=== PATIENT | male | born 1960 | race Caucasian/White ===

== ENCOUNTER 2016-07-15 14:39 | Inpatient (IN) | payer OTHER ==
[2016-07-15] MEDS ORDERED: SODIUM CHLORIDE 0.9% 10 ML FLUSH FLUSH PRN (14:51)
[2016-07-15] MEDS ORDERED: ALBUTEROL 0.083% 3 ML NEB NEB ONE (14:55)
[2016-07-15] MEDS ORDERED: METHYLPREDNISOLONE 125 MG/2 ML VIAL IV ONE (14:55)
[2016-07-15] MEDS ORDERED: Albuterol/Ipratropium Neb 3 ML NEB NEB ONE (14:55)
--- NOTE | 2016-07-15 14:58 | EDPRACDOC ---
- General Information Mode Of Arrival: Car - History of Present Illness Onset: 2-3 days HPI: Pt c/o sob, productive cough x 2-3 days. Denies fever, earache, sore throat, cp , abd pain, n/v, changes in bowel or bladder, leg swelling, rash. Pt states completed Levaquin and steroids couple days ago. Pt states seen in [place] for same thing 10 days ago. Shortness of Breath: Moderate Relevant History: Reports: COPD Cough: Reports: Productive Rhinorrhea: Reports: None Ear Symptoms: Reports: None SOB Worsens with: Reports: Exertion, Movement SOB Improves with: Reports: Nothing Associated Signs and symptoms: Reports: Cough <Darcie Valverde - Last Filed: 07/15/16 15:55> <Angélica Zaragoza - Last Filed: 07/15/16 16:03> - General Information Chief Complaint: Dyspnea/Resp distress Stated Complaint: DIFF.BREATHING HX COPD Time Seen by Provider: 07/15/16 14:51 Home Medications: Home Medications Lisinopril [Prinivil] 30 mg PO DAILY 03/28/15 Tiotropium [place] [Spiriva Respimat] 2 puff INH DAILY 03/28/15 Albuterol Sulfate [Proventil Hfa] 1 puff INH Q6H PRN 07/15/16 Fluticasone/Vilanterol [Breo Ellipta 200-25 Mcg INH] 1 puff INH DAILY 07/15/16 Omeprazole 40 mg PO DAILY 07/15/16 Allergies/Adverse Reactions: Allergies Allergy/AdvReac Type Severity Reaction Status Date / Time Penicillins Allergy Unknown Verified 07/15/16 14:42 ED Past Medical History - History Reviewed Yes Nurses notes reviewed and agree except as marked - Patient Medical History Cardiac History: Reports: Hypertension Respiratory History: Reports: Asthma, COPD, Emphysema GI/ History: Reports: Gastroesophageal Reflux Systemic History: Denies: Cancer - Family Medical History Denies: Hypertension, Diabetes, Cancer, Stroke, Cardiac Disorders - Social Medical History Smoking Status: Heavy tobacco smoker (5 or more cigarettes/day or daily pipe/ cigar) ETOH: None Substance Abuse: None <Darcie Valverde - Last Filed: 07/15/16 15:55> EDM Review of Systems - Review of Systems Constitutional: No Symptoms Reported. negative: Fever, Chills, Weakness, Fatigue, Loss of Appetite Ears: No Symptoms Reported. negative: Pain, Hearing Loss, Drainage, Ear Pulling Throat: No Symptoms Reported. negative: Pain, Swelling Nose: No Symptoms Reported. negative: Congestion, Bleeding, Discharge, Injection, Swelling, Deformity, Ecchymosis, Tender, Abrasion, Laceration Mouth: No Symptoms Reported. negative: Pain, Drooling Respiratory: Cough, Shortness of Breath Cardiovascular: No Symptoms Reported. negative: Chest Pain, Palpitations, Syncope, Edema, Orthopnea, PND, Skin Mottling, Cyanosis Gastrointestinal: No Symptoms Reported. negative: Pain, Constipation, Nausea, Vomiting, Diarrhea, Melena, Formula Intolerance Genitourinary: No Symptoms Reported. negative: Dysuria, Hematuria, Frequency, Discharge, Bleeding, Testicular Pain, Neurological: No Symptoms Reported. negative: Headache, Dizziness, Seizure, Numbness, Weakness, Speech Difficulty, Gait Difficulty Musculoskeletal: No Symptoms Reported. negative: Neck, Chestwall, Ribs, Back, Shoulder, Arm, Elbow, Forearm, Wrist, Hand, Pelvis, Hip, Femur, Knee, Leg, Ankle , Foot Integumentary: No Symptoms Reported. negative: Itching, Rash, Bruising, Wound Allergic/Immunologic: No Symptoms Reported. negative: Hives, Itching Hematologic: No Symptoms Reported. negative: Lymphadenopathy, Easy Bruising, Easy Bleeding Psychiatric: No Symptoms Reported. negative: Anxiety, Depression, Hallucinations, Insomnia, Suicidal <Darcie Valverde April - Last Filed: 07/15/16 15:55> - Physical Exam Constitutional: Alert, Distress (moderate) Oriented to: Time, Person, Place Last recorded Vital Signs: Last Vital Signs Temp 98.8 F 07/15/16 14:42 Pulse 127 H 07/15/16 14:42 Resp 22 07/15/16 14:42 BP 173/92 07/15/16 14:42 Pulse Ox 88 L 07/15/16 14:42 Oxygen Pulse Oxygen Saturation 88 O2 Device Room Air Oxygen Flow Rate Fraction of Inspired Oxygen ( FIO2) - HEENT Head: Normal ( normocephalic) Eye Exam: Normal (PERRL, EOMI, Sclera white) Oropharynx: Normal (Pharynx:Moist without exudate,Gums-no swelling) Tympanic Membrane: Normal ENT EAC: Normal Nose: No Symptoms Reported (septum midline) Neck: Normal (FROM, trachea at midline) - Respiratory/Cardiovascular Respiratory: Diminished, Wheezes Cardiovascular: Tachycardia - GI Auscultation: Normal (NABS) Palpation: Normal (Soft,No rebound or guarding, non distended) Tenderness: Non tender - Musculoskeletal Back: Normal (Non-Tender) Extremities: Normal (Normal tone, Pulses 2+ No cyanosis or edema, FROM) - Integumentary Skin: Normal, Warm, Dry Lymphatics: Normal (no adenopathy) - Neurologic Memory Impaired: Normal Motor Function: Normal (Normal tone, Pulses 2+ No cyanosis or edema, FROM) Mood Description: Normal Perception: Normal <Darcie Valverde - Last Filed: 07/15/16 15:55> - Physical Exam Last recorded Vital Signs: Last Vital Signs Temp 98.8 F 07/15/16 14:42 Pulse 127 H 07/15/16 14:42 Resp 22 07/15/16 14:42 BP 173/92 07/15/16 14:42 Pulse Ox 88 L 07/15/16 14:42 Oxygen Pulse Oxygen Saturation 88 O2 Device Room Air Oxygen Flow Rate Fraction of Inspired Oxygen ( FIO2) <Angélica Zaragoza - Last Filed: 07/15/16 16:03> ED SOB MDM - Differential Diagnosis Differential Diagnosis: Heart Failure, Pulmonary Embolus, Pnuemonia, Respiratory Insufficiency, URI - Results Result Diagrams: 07/15/16 15:15 07/15/16 15:15 - EKG EKG #1 EKG Time: 15:03 Rate: bpm: 123 [place]: Normal Rhythm: ST Block: None ST: Nonsp - Diagnostic Imaging Chest Image interpreted by: Radiologist Diagnostic Imaging Comments: IMPRESSION: Evidence of a degree of chronic bronchitis. No edema or consolidation. Healed rib fractures on the right. <Darcie Valverde - Last Filed: 07/15/16 15:55> - Re-evaluation Re-evaluation 1 Re-evaluation Time: 16:01 (improved, but still ) - Results Result Diagrams: 07/15/16 15:15 07/15/16 15:15 Results: WBC 8.1 xk/uL (3.8-10.8) 07/15/16 15:15 RBC 5.03 xM/uL (4.70-6.10) 07/15/16 15:15 Hgb 16.2 g/dL (14.0-18.0) 07/15/16 15:15 Hct 47.9 % (42-52) 07/15/16 15:15 MCV 95 fL (80-94) H 07/15/16 15:15 MCH 32.3 pg (27-32) H 07/15/16 15:15 MCHC 33.9 g/dl (33-36) 07/15/16 15:15 RDW 13.0 % (11.5-14.5) 07/15/16 15:15 Plt Count 212 xk/uL (130-400) 07/15/16 15:15 MPV 8.2 fL (7.4-10.4) 07/15/16 15:15 Neut % (Auto) 60.4 % (45-76) 07/15/16 15:15 Lymph % (Auto) 12.2 % (17-44) L 07/15/16 15:15 [place] % (Auto) 16.1 % (3-10) H 07/15/16 15:15 Eos % (Auto) 10.4 % (0-5) H 07/15/16 15:15 Baso % (Auto) 0.9 % (0-2) 07/15/16 15:15 Absolute Neuts (auto) 4.86 xk/uL (1.7-8.2) 07/15/16 15:15 Absolute Lymphs (auto) 0.97 xk/uL (0.65-4.75) 07/15/16 15:15 PT 10.2 SEC (9.2-11.2) 07/15/16 15:15 INR 1.0 07/15/16 15:15 APTT 25.9 SEC (22-35) 07/15/16 15:15 Puncture Site Right radial 07/15/16 15:05 pH 7.390 pH UNITS (7.35-7.45) 07/15/16 15:05 pCO2 49.0 mmHg (35-45) H 07/15/16 15:05 pO2 55.0 mmHg (80-100) L 07/15/16 15:05 HCO3 29.7 MMOL/L (22-26) H 07/15/16 15:05 Total CO2 31.2 MMOL/L (23-27) H 07/15/16 15:05 Base Excess 3.7 (+/- 2) H 07/15/16 15:05 FiO2 % 21% 07/15/16 15:05 Specimen Drawn By Piksa 07/15/16 15:05 Sodium 138 mEq/L (137-146) 07/15/16 15:15 Potassium 4.2 mEq/L (3.5-5.1) 07/15/16 15:15 Chloride 99 mEq/L (98-107) 07/15/16 15:15 Carbon Dioxide 30 mMOL/L (22-33) 07/15/16 15:15 Anion Gap 13 mEq/L (8-16) 07/15/16 15:15 BUN 9 MG/DL (9-20) 07/15/16 15:15 Creatinine 0.80 MG/DL (0.66-1.25) 07/15/16 15:15 Estimated GFR (MDRD) > 60 mL/min (>=60) 07/15/16 15:15 Glucose 142 MG/DL (70-99) H 07/15/16 15:15 Calculated Osmolality 267 MOs/Kg (270-290) L 07/15/16 15:15 Lactic Acid 1.6 mEq/L (0.7-2.1) 07/15/16 15:15 Calcium 8.8 MG/DL (8.4-10.2) 07/15/16 15:15 Total Bilirubin 0.4 MG/DL (0.2-1.3) 07/15/16 15:15 AST 22 IU/L (17-59) 07/15/16 15:15 ALT 35 IU/L (21-72) 07/15/16 15:15 Alkaline Phosphatase 73 IU/L (38-126) 07/15/16 15:15 Creatine Kinase 63 IU/L (55-170) 07/15/16 15:15 Total Protein 6.9 G/DL (6.3-8.2) 07/15/16 15:15 Albumin 4.0 G/DL (3.5-5.0) 07/15/16 15:15 Lab Results 07/15/16 07/15/16 07/15/16 15:15 15:15 15:15 WBC 8.1 RBC 5.03 Hgb 16.2 Hct 47.9 MCV 95 H MCH 32.3 H MCHC 33.9 RDW 13.0 Plt Count 212 MPV 8.2 Neut % (Auto) 60.4 Lymph % (Auto) 12.2 L [place] % (Auto) 16.1 H Eos % (Auto) 10.4 H Baso % (Auto) 0.9 Absolute Neuts (auto) 4.86 Absolute Lymphs (auto) 0.97 PT 10.2 INR 1.0 APTT 25.9 Puncture Site pH pCO2 pO2 HCO3 Total CO2 Base Excess FiO2 % Specimen Drawn By Sodium Potassium Chloride Carbon Dioxide Anion Gap BUN Creatinine Estimated GFR (MDRD) Glucose Calculated Osmolality Lactic Acid 1.6 Calcium Total Bilirubin AST ALT Alkaline Phosphatase Creatine Kinase Total Protein Albumin 07/15/16 07/15/16 15:15 15:05 WBC RBC Hgb Hct MCV MCH MCHC RDW Plt Count MPV Neut % (Auto) Lymph % (Auto) [place] % (Auto) Eos % (Auto) Baso % (Auto) Absolute Neuts (auto) Absolute Lymphs (auto) PT INR APTT Puncture Site Right radial pH 7.390 pCO2 49.0 H pO2 55.0 L HCO3 29.7 H Total CO2 31.2 H Base Excess 3.7 H FiO2 % 21% Specimen Drawn By Piksa Sodium 138 Potassium 4.2 Chloride 99 Carbon Dioxide 30 Anion Gap 13 BUN 9 Creatinine 0.80 Estimated GFR (MDRD) > 60 Glucose 142 H Calculated Osmolality 267 L Lactic Acid Calcium 8.8 Total Bilirubin 0.4 AST 22 ALT 35 Alkaline Phosphatase 73 Creatine Kinase 63 Total Protein 6.9 Albumin 4.0 <Angélica Zaragoza - Last Filed: 07/15/16 16:03> <Darcie Valverde - Last Filed: 07/15/16 15:55> - Departure Yes I personally saw and evaluated the patient. Disposition: Admit IP To This Hospital Education/Counseling Given To: Patient Education/Counseling Given Regarding: Diagnosis, Treatment Decision to Admit Time: 16:03 Decision to admit date: 07/15/16 Decision to admit: from ED - Physician Consulted Hospitalist Provider Called: Sidney Galan <Angélica Zaragoza - Last Filed: 07/15/16 16:03> - Departure Condition: Fair Final Diagnosis: Acute exacerbation of chronic obstructive airways disease, Tobacco abuse, Acute bronchitis
--- NOTE | 2016-07-15 15:10 | DIRPT ---
CLINICAL DATA: Two day history of shortness of breath EXAM: PORTABLE CHEST 1 VIEW COMPARISON: March 28, 2015 FINDINGS: Lungs remain hyperexpanded. There is central peribronchial thickening. No edema or consolidation. Heart size and pulmonary vascularity normal. No adenopathy. There are healed fractures on the right. IMPRESSION: Evidence of a degree of chronic bronchitis. No edema or consolidation. Healed rib fractures on the right. Electronically Signed By: Damaso Cloud III, M.D. On: 07/15/2016 15:07
[2016-07-15 15:12] LABS: ABG Draw Site Right Radial; ALLEN'S TEST PASS; BEb 3.7 (+/- 2); TCO2 31.2 MMOL/L (23-27)
[2016-07-15 15:35] LABS: AUTOMATED BASOPHIL 0.9 % (0-2); AUTOMATED EOSINOPHIL 10.4 % (0-5); AUTOMATED LYMPH 12.2 % (17-44); AUTOMATED MONOCYTE 16.1 % (3-10); AUTOMATED NEUTROPHIL 60.4 % (45-76); MPV 8.2 fL (7.4-10.4)
[2016-07-15 15:46] LABS: BLOOD UREA NITROGEN 9 MG/DL (9-20); CALCIUM 8.8 MG/DL (8.4-10.2); CALCULATED OSMOLALITY 267 MOs/Kg (270-290); CHLORIDE 99 mEq/L (98-107); CPK TOTAL WITH POSSIBLE MB 63 IU/L (55-170); GLUCOSE 142 MG/DL (70-99); SODIUM LEVEL 138 mEq/L (137-146); TOTAL PROTEIN 6.9 G/DL (6.3-8.2)
[2016-07-15 15:50] LABS: PARTIAL THROMB. TIME 25.9 SEC (22-35)
[2016-07-15] MEDS ORDERED: Levofloxacin 750 mg/150 ml D5W 750 MG/150 ML RTU IV ONE (16:00)
[2016-07-15] MEDS ORDERED: GLUCOSE (ORAL GEL) 15 GM TUBE PO PRN (16:46)
[2016-07-15] MEDS ORDERED: DEXTROSE 25 GM/50 ML PFS IV PRN (16:46)
[2016-07-15] MEDS ORDERED: GLUCAGON 1 MG VIAL SQ PRN (16:46)
[2016-07-15] MEDS ORDERED: Albuterol/Ipratropium Neb 3 ML NEB NEB PRN (16:46)
--- NOTE | 2016-07-15 16:55 | HISTPHYS ---
- Chief Complaint sob,cough - History of Present Illness 56 yowm presented to emergency room early on today for evaluation of worsening difficulties breathing cough and phlegm production. Patient reports that about a week ago he has developed chest congestion and cough productive of small amount of foamy sputum. Patient stays that since that time his symptoms have worsened his cough has become productive of thick yellowish greenish phlegm, he has developed progressive worsening dyspnea chest tightness and wheezes. Patient stays that despite using his nebulizers with increased frequency he did not sustain any asymptomatic improvement. Early on today he has found himself gasping for air and decided to be evaluated emergency room. Upon arrival in ED patient was found to be in severe respiratory distress hypoxic tachypneic and tachycardic. His PaO2 was only 55 chest x-ray claudine suspicion for pneumonia. Medical consultation was phoned in for inpatient treatment. - Medical History Cardiac History: Reports: Hypertension, Hypercholesterolemia, Valvular Heart Disease Respiratory History: Reports: COPD, Cough, Chronic Bronchitis, Pneumonia, Emphysema GI/ History: Reports: Gastroesophageal Reflux, BPH Musculoskeletal History: Reports: No Significant History Systemic History: Reports: No Significant History Neurological History: Reports: No Significant History Psychological History: Reports: Anxiety. Denies: Depression - Surgical History Reports: No Significant History - Medictions/Allergies Allergies Penicillins Allergy (Verified 07/15/16 14:42) Unknown Current Medication List: Reviewed Home Medications Lisinopril [Prinivil] 30 mg PO DAILY 03/28/15 Tiotropium [place] [Spiriva Respimat] 2 puff INH DAILY 03/28/15 Albuterol Sulfate [Proventil Hfa] 1 puff INH Q6H PRN 07/15/16 Fluticasone/Vilanterol [Breo Ellipta 200-25 Mcg INH] 1 puff INH DAILY 07/15/16 Omeprazole 40 mg PO DAILY 07/15/16 - Family History Reports: Other (Father at 87 to dementia ,mother at 65 due to chf). Denies: Hypertension, Diabetes, Cancer, Stroke, Cardiac Disorders - Social History Travel Outside of [place] in the Last 3 Months?: No Lives: with Significant Other Smoking Status: Heavy tobacco smoker (5 or more cigarettes/day or daily pipe/ cigar) - Review of Systems Constitutional: Chills, Fever, Diaphoresis, Fatigue, Weakness Eyes: No Symptoms Reported Ears: No Symptoms Reported Nose: No Symptoms Reported Mouth: No Symptoms Reported Throat/Neck: No Symptoms Reported Respiratory: Cough, Shortness of Breath, Wheezing, Sputum, Dyspnea Cardiovascular: Palpitations Gastrointestinal: Constipation, Heartburn Neurological: No Symptoms Reported Musculoskeletal:: No Symptoms Reported, Arthritis Integumentary: No Symptoms Reported Allergic/Immunologic: No Symptoms Reported Hematologic: No Symptoms Reported Endocrine: No Symptoms Reported Psychiatric: No Symptoms Reported - Physical Exam Vital Signs: Initial Vitals Temperature 98.8 F 07/15/16 14:42 Pulse Rate 127 H 07/15/16 14:42 Respiratory Rate 22 07/15/16 14:42 Blood Pressure 173/92 07/15/16 14:42 Pulse Oxygen Saturation 88 L 07/15/16 14:42 Constitutional: Alert, Distress, Restless Oriented to: Time, Person, Place - HEENT Head: Normal Eye: Normal Oropharynx: Normal ENT EAC: Normal TMJ: Normal Nose: No Symptoms Reported Respiratory: Accessory Muscle Use, Diminished, Retractions, Rhonchi, Tachypnea, Wheezes Cardiovascular: Normal, Tachycardia, Systolic murmur - GI Auscultation: Normal Palpation: Normal Tenderness: Non tender Rectal Exam: Deferred - Exam Deferred: Yes - Musculoskeletal Back: Normal Extremities: Normal Spine: non-tender, limited range of motion - Integumentary Skin: Normal, Warm, Dry Lymphatics: Normal - Neurologic Memory Impaired: Normal Motor Function: Normal Cranial Nerve: Normal Cerebellar: Normal Mood Description: Anxious Thought: Coherent Perception: Normal - Focused CV Perfusion Exam Vital Signs: Last Vital Signs Temp 98.8 F 07/15/16 14:42 Pulse 116 07/15/16 16:34 Resp 18 07/15/16 16:34 BP 134/71 07/15/16 16:34 Pulse Ox 95 07/15/16 16:34 - Diagnostic Findings Allergies Penicillins Allergy (Verified 07/15/16 14:42) Unknown Last Vital Signs Temp 98.8 F 07/15/16 14:42 Pulse 116 07/15/16 16:34 Resp 18 07/15/16 16:34 BP 134/71 07/15/16 16:34 Pulse Ox 95 07/15/16 16:34 07/15/16 15:15 07/15/16 15:15 Abnormal Lab Results 01/14/17 01/14/17 01/14/17 15:05 15:15 15:15 MCV 95 H MCH 32.3 H Lymph % (Auto) 12.2 L [place] % (Auto) 16.1 H Eos % (Auto) 10.4 H pCO2 49.0 H pO2 55.0 L HCO3 29.7 H Total CO2 31.2 H Base Excess 3.7 H Glucose 142 H Calculated Osmolality 267 L Initial Vitals Temperature 98.8 F 07/15/16 14:42 Pulse Rate 127 H 07/15/16 14:42 Respiratory Rate 22 07/15/16 14:42 Blood Pressure 173/92 07/15/16 14:42 Pulse Oxygen Saturation 88 L 07/15/16 14:42 Patient Name: RAYMUNDO FLORES LOC: ED : 1960 AGE: 56 Order Date:07/15/16 Date of Service: Report # [id number] Ord Physician: Darcie Valverde Exam # [id number] Emergency Physician: Angélica Zaragoza MD Exam(s): [id number] RAD/DG CHEST PORTABLE CLINICAL DATA: Two day history of shortness of breath EXAM: PORTABLE CHEST 1 VIEW COMPARISON: March 28, 2015 FINDINGS: Lungs remain hyperexpanded. There is central peribronchial thickening. No edema or consolidation. Heart size and pulmonary vascularity normal. No adenopathy. There are healed fractures on the right. IMPRESSION: Evidence of a degree of chronic bronchitis. No edema or consolidation. Healed rib fractures on the right. Electronically Signed By: Damaso Cloud III, M.D. On: 07/15/2016 15:07 EKG: sinus tach - Assessment (1) Acute respiratory failure with hypoxia J96.01 - ACUTE RESPIRATORY FAILURE WITH HYPOXIA Acute Present on Admission: Yes Patient will be admitted to medical bed. Supplemental O2 will be provided.Monitor pulmonary status. (2) Acute exacerbation of chronic obstructive airways disease J44.1 - CHRONIC OBSTRUCTIVE PULMONARY DISEASE W (ACUTE) EXACERBATION Acute Present on Admission: Yes Patient received IV steroids at high doses and nebulized bronchodilators. (3) Pneumonia J18.9 - PNEUMONIA, UNSPECIFIED ORGANISM Acute Present on Admission: Yes Patient will receive IV antibiotics in the form of Rocephin and Zithromax. Monitor cultures (4) HTN (hypertension) I10 - ESSENTIAL (PRIMARY) HYPERTENSION Chronic Present on Admission: Yes Qualifiers: Hypertension type: essential hypertension Qualified Code(s): I10 - Essential (primary) hypertension Continue lisinopril keep SBP less than 140 (5) Tobacco abuse Z72.0 - TOBACCO USE Chronic Present on Admission: Yes Smoking cessation counseling provided the patient. He was clearly advised that if he continues to smoke he will become permanently handicap from non perspective (6) GERD (gastroesophageal reflux disease) K21.9 - GASTRO-ESOPHAGEAL REFLUX DISEASE WITHOUT ESOPHAGITIS Acute Present on Admission: Yes Qualifiers: Esophagitis presence: without esophagitis Qualified Code(s): K21.9 - Gastro -esophageal reflux disease without esophagitis continue ppi. (7) Dehydration E86.0 - DEHYDRATION Acute Present on Admission: Yes Gentle IV hydration we provided Case Care Discussed with: Patient, Nursing Staff, Respiratory Therapy Total Time: 60 min . Critical Care: Yes Code: 291
[2016-07-15 18:25] VITALS: BMI 19.6
[2016-07-15] MEDS: NS 1,000 ML IV SCH (19:45)
[2016-07-15] MEDS: REGULAR INSULIN 100 UNITS/ML - 3 ML VIAL SQ SCH (19:45)
[2016-07-15] MEDS: ENOXAPARIN 40 MG/0.4 ML PFS SQ SCH (19:46)
[2016-07-15] MEDS: Albuterol/Ipratropium Neb 3 ML NEB NEB SCH (20:20)
[2016-07-15] MEDS: BUDESONIDE 0.5 MG NEB NEB SCH (20:22)
[2016-07-15] MEDS: GUAIFENESIN 600 MG LA TAB PO SCH (21:13)
[2016-07-15] MEDS ORDERED: ACETAMINOPHEN 325 MG/TAB TABLET PO PRN (21:52)
[2016-07-15] MEDS ORDERED: ONDANSETRON HCL 4 MG/2 ML VIAL IV PRN (21:52)
[2016-07-15] MEDS ORDERED: SIMETHICONE 80 MG TAB PO PRN (21:52)
[2016-07-15] MEDS ORDERED: SENNA CONCENTRATE TAB PO PRN (21:52)
[2016-07-15] MEDS ORDERED: Docusate Sodium 100 MG CAP PO PRN (21:52)
[2016-07-15] MEDS ORDERED: PROMETHAZINE 25 MG/ML VIAL IV PRN (21:52)
[2016-07-15] MEDS ORDERED: ACETAMINOPHEN 325 MG SUPP PR PRN (21:52)
[2016-07-15] MEDS ORDERED: BISACODYL 5 MG TAB PO PRN (21:52)
[2016-07-15] MEDS ORDERED: GUAIFEN 100 MG-DEXTROMETH 10 MG PER 5 ML PO PRN (21:52)
[2016-07-15] MEDS ORDERED: Vaccine Screening Complete SCH (23:00)
[2016-07-15] MEDS: METHYLPREDNISOLONE 125 MG/2 ML VIAL IV SCH (23:01)
[2016-07-15] MEDS: TRAZODONE 50 MG TAB PO SCH (23:02)
[2016-07-15] MEDS: BENZONATATE 100 MG PERLES PO PRN (23:02)
[2016-07-15 23:04] LABS: LEUKOCYTES/URINE NEG (NEGATIVE); NITRITE/URINE NEG (NEGATIVE); RBC/URINE 0-2 (0-2); URINE OCCULT BLOOD NEG (NEG/TRACE); WBC/URINE 0-2 (0-2)
[2016-07-16] MEDS: Albuterol/Ipratropium Neb 3 ML NEB NEB SCH ×4 (01:20→20:05)
[2016-07-16] MEDS: REGULAR INSULIN 100 UNITS/ML - 3 ML VIAL SQ SCH ×5 (01:58→16:31)
[2016-07-16 05:08] LABS: ALLEN'S TEST PASS; BEb 3.1 (+/- 2); TCO2 31.9 MMOL/L (23-27)
[2016-07-16 05:28] LABS: ABG Draw Site Right Radial
[2016-07-16] MEDS: NS 1,000 ML IV SCH ×2 (05:28→16:30)
[2016-07-16] MEDS: METHYLPREDNISOLONE 125 MG/2 ML VIAL IV SCH ×4 (05:28→22:02)
[2016-07-16] MEDS: PANTOPRAZOLE 40 MG TAB PO SCH (05:29)
[2016-07-16 07:39] LABS: BLOOD UREA NITROGEN 8 MG/DL (9-20); CALCIUM 8.5 MG/DL (8.4-10.2); CALCULATED OSMOLALITY 262 MOs/Kg (270-290); CHLORIDE 101 mEq/L (98-107); GLUCOSE 131 MG/DL (70-99); SODIUM LEVEL 136 mEq/L (137-146)
[2016-07-16] MEDS: BUDESONIDE 0.5 MG NEB NEB SCH ×2 (07:44→20:06)
[2016-07-16] MEDS: LISINOPRIL 20 MG TAB PO SCH (09:18)
[2016-07-16] MEDS: GUAIFENESIN 600 MG LA TAB PO SCH ×2 (09:18→22:01)
--- NOTE | 2016-07-16 10:44 | DIRPT ---
CLINICAL DATA: Respiratory failure EXAM: CHEST 2 VIEW COMPARISON: 07/15/2016 FINDINGS: Normal cardiac silhouette. Lungs are hyperinflated. No effusion, infiltrate or pneumothorax. Remote RIGHT lateral rib fractures. IMPRESSION: Hyperinflated lungs without acute findings. Electronically Signed By: Dusty Eagle M.D. On: 07/16/2016 10:42
--- NOTE | 2016-07-16 15:08 | GENMEDPROG ---
Subjective Note: Patient in bed responsive follows commands. Still visibly short of breath with audible rhonchi and wheezes. Coughing producing fair amount thick sputum no hemoptysis. Notes Reviewed: Yes Events from last night noted and discussed with Clinical Staff Current Medication List: Reviewed Currently: Reports: Cough, Wheezing, HUMMEL, SOB, Sputum, Tobacco Use/Hx, Reflux Sx DVT Prophylaxis: Yes - Physical Examination Vital Signs and I&O: Last Vital Signs Temp 98.0 F 07/16/16 14:00 Pulse 112 07/16/16 14:00 Resp 18 07/16/16 14:00 BP 137/68 07/16/16 14:00 Pulse Ox 93 07/16/16 14:00 Oxygen Pulse Oxygen Saturation 93 O2 Device Nasal Cannula Oxygen Flow Rate 2 Fraction of Inspired Oxygen ( FIO2) Intake & Output 07/13/16 07/14/16 07/15/16 07/16/16 23:59 23:59 23:59 23:59 Intake Total 270 1283 Output Total 1000 2525 Balance -730 -1242 Patient's weight 56.88 kg 56.841 kg General: Alert, Oriented x3, Cooperative, Mild distress HEENT: Normal, PERRLA, EOMI, Anicteric Sclera Neck: Non-tender, Normal inspection, Limited range of motion Lymphatics: Normal Respiratory: Diminished, Rhonchi, Tachypnea, Wheezes Cardiovascular: Regular rate, Regular rate and rhythm, Normal S2, Murmurs GI: Normal bowel sounds, Soft, Non tender, No hepatospenomegaly Extremities/Musculoskeletal: Normal pulses, Swelling, DJD Skin: Warm,Dry and Intact, No rashes, No breakdown, Warmth Neurological: Normal speech, Cranial nerves 3-12 NL Psych/Mental Status: Anxious Last Vital Signs Temp 98.0 F 07/16/16 14:00 Pulse 112 07/16/16 14:00 Resp 18 07/16/16 14:00 BP 137/68 07/16/16 14:00 Pulse Ox 93 07/16/16 14:00 Patient Name: RAYMUNDO FLORES LOC: [facility] : 1960 AGE: 56 Order Date:07/15/16 Date of Service: Report # [id number] Ord Physician: Cristóbal Terry MD Exam # [id number] Emergency Physician: Angélica Zaragoza MD Exam(s): [id number] RAD/DG CHEST 2V CLINICAL DATA: Respiratory failure EXAM: CHEST 2 VIEW COMPARISON: 07/15/2016 FINDINGS: Normal cardiac silhouette. Lungs are hyperinflated. No effusion, infiltrate or pneumothorax. Remote RIGHT lateral rib fractures. IMPRESSION: Hyperinflated lungs without acute findings. Electronically Signed By: Dusty Eagle M.D. On: 07/16/2016 10:42 Lab/DI/Studies Reviewed: 07/15/16 15:15 07/16/16 07:00 Abnormal Lab Results 07/15/16 07/15/16 07/15/16 15:05 15:15 15:15 MCV 95 H MCH 32.3 H Lymph % (Auto) 12.2 L [place] % (Auto) 16.1 H Eos % (Auto) 10.4 H pH pCO2 49.0 H pO2 55.0 L HCO3 29.7 H Total CO2 31.2 H Base Excess 3.7 H Sodium BUN Creatinine Glucose 142 H POC Capillary Glucose Calculated Osmolality 267 L 07/16/16 07/16/16 07/16/16 01:56 04:50 06:05 MCV MCH Lymph % (Auto) [place] % (Auto) Eos % (Auto) pH 7.340 L pCO2 56.0 H pO2 68.0 L HCO3 30.2 H Total CO2 31.9 H Base Excess 3.1 H Sodium BUN Creatinine Glucose POC Capillary Glucose 126 H 135 H Calculated Osmolality 07/16/16 07/16/16 07:00 11:51 MCV MCH Lymph % (Auto) [place] % (Auto) Eos % (Auto) pH pCO2 pO2 HCO3 Total CO2 Base Excess Sodium 136 L BUN 8 L Creatinine 0.60 L Glucose 131 H POC Capillary Glucose 182 H Calculated Osmolality 262 L - Assessment (1) Acute respiratory failure with hypoxia Acute J96.01 - ACUTE RESPIRATORY FAILURE WITH HYPOXIA Comment/Plan: Continue O2 nebs and pulmonary toilet. Monitor pulmonary status. Weaned off oxygen as tolerated and increase activity (2) Acute exacerbation of chronic obstructive airways disease Acute J44.1 - CHRONIC OBSTRUCTIVE PULMONARY DISEASE W (ACUTE) EXACERBATION Comment/Plan: Patient received IV steroids at high doses and nebulized bronchodilators. (3) Pneumonia Acute J18.9 - PNEUMONIA, UNSPECIFIED ORGANISM Comment/Plan: Patient will receive IV antibiotics in the form of Rocephin and Zithromax. Monitor cultures (4) HTN (hypertension) Chronic I10 - ESSENTIAL (PRIMARY) HYPERTENSION Qualifiers: Hypertension type: essential hypertension Qualified Code(s): I10 - Essential (primary) hypertension Comment/Plan: Stable on home meds (5) Tobacco abuse Chronic Z72.0 - TOBACCO USE Comment/Plan: Smoking cessation counseling provided the patient. He was clearly advised that if he continues to smoke he will become permanently handicap from non perspective (6) GERD (gastroesophageal reflux disease) Acute K21.9 - GASTRO-ESOPHAGEAL REFLUX DISEASE WITHOUT ESOPHAGITIS Qualifiers: Esophagitis presence: without esophagitis Qualified Code(s): K21.9 - Gastro -esophageal reflux disease without esophagitis Comment/Plan: continue ppi. (7) Dehydration Acute E86.0 - DEHYDRATION Comment/Plan: Gentle IV hydration we provided Case Care Discussed with: Patient, Family, Nursing Staff, Resource Management, Chemical Test Engineer Education/Counseling Given To: Patient Education/Counseling Given Regarding: Diagnosis, Treatment, Prognosis, Follow Up Total Time: 45 min . Critical Care: No Code: [id number] (12+)
[2016-07-16] MEDS ORDERED: Levofloxacin 750 mg/150 ml D5W 750 MG/150 ML RTU IV SCH (16:00)
[2016-07-16] MEDS: ENOXAPARIN 40 MG/0.4 ML PFS SQ SCH (16:32)
[2016-07-16] MEDS: TRAZODONE 50 MG TAB PO SCH (22:01)
[2016-07-17] MEDS: REGULAR INSULIN 100 UNITS/ML - 3 ML VIAL SQ SCH ×4 (01:28→16:41)
[2016-07-17] MEDS: Albuterol/Ipratropium Neb 3 ML NEB NEB SCH ×4 (02:06→20:21)
[2016-07-17] MEDS: NS 1,000 ML IV SCH ×2 (03:50→16:32)
[2016-07-17] MEDS: METHYLPREDNISOLONE 125 MG/2 ML VIAL IV SCH ×4 (04:27→22:07)
[2016-07-17] MEDS: PANTOPRAZOLE 40 MG TAB PO SCH (06:23)
[2016-07-17] MEDS: BUDESONIDE 0.5 MG NEB NEB SCH ×2 (07:44→20:27)
[2016-07-17] MEDS: GUAIFENESIN 600 MG LA TAB PO SCH ×2 (08:07→20:49)
[2016-07-17] MEDS: LISINOPRIL 20 MG TAB PO SCH (08:08)
[2016-07-17] MEDS: BENZONATATE 100 MG PERLES PO PRN (08:10)
[2016-07-17] MEDS ORDERED: FUROSEMIDE 40 MG/4 ML VIAL IV ONE (16:00)
[2016-07-17] MEDS: LEVOFLOXACIN 750 MG TAB PO SCH (16:36)
[2016-07-17] MEDS: ENOXAPARIN 40 MG/0.4 ML PFS SQ SCH (16:41)
--- NOTE | 2016-07-17 17:08 | GENMEDPROG ---
Subjective Note: Patient in bed responsive follows commands still visibly short of breath with audible wheezes and rhonchi. Coughing producing small amount of sputum. Still tight in the chest and wheezy Notes Reviewed: Yes Events from last night noted and discussed with Clinical Staff Current Medication List: Reviewed Currently: Reports: Cough, Wheezing, HUMMEL, SOB, Sputum, Tobacco Use/Hx, Reflux Sx DVT Prophylaxis: Yes - Physical Examination Vital Signs and I&O: Last Vital Signs Temp 97.1 F L 07/17/16 14:04 Pulse 88 07/17/16 14:04 Resp 20 07/17/16 14:04 BP 142/73 07/17/16 14:04 Pulse Ox 100 07/17/16 14:04 Oxygen Pulse Oxygen Saturation 100 O2 Device Nasal Cannula Oxygen Flow Rate 2 Fraction of Inspired Oxygen ( FIO2) Intake & Output 07/14/16 07/15/16 07/16/16 07/17/16 23:59 23:59 23:59 23:59 Intake Total 270 2944 2248 Output Total 1000 3100 1500 Balance -730 -156 748 Patient's weight 56.88 kg 56.841 kg General: Alert, Oriented x3, Cooperative, Mild distress HEENT: Normal, PERRLA, EOMI, Anicteric Sclera Neck: Non-tender, Normal inspection, Limited range of motion Lymphatics: Normal Respiratory: Diminished, Rhonchi, Tachypnea, Wheezes Cardiovascular: Regular rate, Regular rate and rhythm, Normal S2, Murmurs GI: Normal bowel sounds, Soft, Non tender, No hepatospenomegaly Extremities/Musculoskeletal: Normal pulses, Swelling, DJD Skin: Warm,Dry and Intact, No rashes, No breakdown, Warmth Neurological: Normal speech, Cranial nerves 3-12 NL Psych/Mental Status: Anxious Lab/DI/Studies Reviewed: 07/15/16 15:15 07/16/16 07:00 - Assessment (1) Acute respiratory failure with hypoxia Acute J96.01 - ACUTE RESPIRATORY FAILURE WITH HYPOXIA Comment/Plan: Continue O2 nebs and pulmonary toilet. Monitor pulmonary status. Minimal progress on maximal pulmonary therapy. Repeat ABG in the morning ,may require BiPAP (2) Acute exacerbation of chronic obstructive airways disease Acute J44.1 - CHRONIC OBSTRUCTIVE PULMONARY DISEASE W (ACUTE) EXACERBATION Comment/Plan: Patient received IV steroids at high doses and nebulized bronchodilators. (3) Pneumonia Acute J18.9 - PNEUMONIA, UNSPECIFIED ORGANISM Comment/Plan: Patient will receive IV antibiotics in the form of Rocephin and Zithromax. Monitor cultures (4) HTN (hypertension) Chronic I10 - ESSENTIAL (PRIMARY) HYPERTENSION Qualifiers: Hypertension type: essential hypertension Qualified Code(s): I10 - Essential (primary) hypertension Comment/Plan: Stable on home meds (5) Tobacco abuse Chronic Z72.0 - TOBACCO USE Comment/Plan: Smoking cessation counseling provided the patient. He was clearly advised that if he continues to smoke he will become permanently handicap from lung perspective (6) GERD (gastroesophageal reflux disease) Acute K21.9 - GASTRO-ESOPHAGEAL REFLUX DISEASE WITHOUT ESOPHAGITIS Qualifiers: Esophagitis presence: without esophagitis Qualified Code(s): K21.9 - Gastro -esophageal reflux disease without esophagitis Comment/Plan: continue ppi. (7) Dehydration Acute E86.0 - DEHYDRATION Comment/Plan: Gentle IV hydration we provided Case Care Discussed with: Patient, Consultants, Nursing Staff, Respiratory Therapy, Sales Planning Manager Education/Counseling Given To: Patient Education/Counseling Given Regarding: Diagnosis, Treatment, Prognosis, Follow Up Total Time: 45min . Critical Care: No Code: 10488 (12+)
[2016-07-17] MEDS: ACETYLCYSTEINE 20% SOLN 4 ML NEB SCH (20:28)
[2016-07-17] MEDS: TRAZODONE 50 MG TAB PO SCH (20:49)
[2016-07-17] MEDS: LORAZEPAM 2 MG/ML VIAL IV PRN (22:08)
[2016-07-18] MEDS: REGULAR INSULIN 100 UNITS/ML - 3 ML VIAL SQ SCH ×5 (00:50→23:16)
[2016-07-18] MEDS: Albuterol/Ipratropium Neb 3 ML NEB NEB SCH ×4 (01:50→20:46)
[2016-07-18] MEDS: METHYLPREDNISOLONE 125 MG/2 ML VIAL IV SCH ×4 (04:08→22:28)
[2016-07-18 05:13] LABS: ABG Draw Site Right Radial; ALLEN'S TEST PASS; BEb 10.3 (+/- 2); BI-PAP 16/8 cm H2O; TCO2 38.7 MMOL/L (23-27)
[2016-07-18] MEDS: PANTOPRAZOLE 40 MG TAB PO SCH (05:17)
[2016-07-18 07:45] LABS: BLOOD UREA NITROGEN 11 MG/DL (9-20); CALCIUM 8.8 MG/DL (8.4-10.2); CALCULATED OSMOLALITY 264 MOs/Kg (270-290); CHLORIDE 96 mEq/L (98-107); GLUCOSE 121 MG/DL (70-99); SODIUM LEVEL 137 mEq/L (137-146)
[2016-07-18] MEDS: ACETYLCYSTEINE 20% SOLN 4 ML NEB SCH ×2 (08:52→20:50)
[2016-07-18] MEDS: BUDESONIDE 0.5 MG NEB NEB SCH ×2 (08:59→21:00)
[2016-07-18] MEDS ORDERED: Non-Formulary Medication ITEM (Fluticasone/Vilanterol [Breo Ellipta 200-25 Mcg Inh] 1 PU INH SCH (09:00)
[2016-07-18] MEDS: DOXAZOSIN MESYLATE 1 MG TAB PO SCH (09:17)
[2016-07-18] MEDS: LISINOPRIL 20 MG TAB PO SCH (09:18)
[2016-07-18] MEDS: GUAIFENESIN 600 MG LA TAB PO SCH ×2 (09:18→21:14)
[2016-07-18] MEDS: LORAZEPAM 2 MG/ML VIAL IV PRN ×2 (09:27→21:14)
--- NOTE | 2016-07-18 12:40 | GENMEDPROG ---
Chief Complaint: Severe COPD exacerbation Subjective Note: Resting comfortably in bed. Audible wheezing from the door. Denies any chest pain, says that he gets severely hypoxic and short of breath with any sort of exertion. Notes Reviewed: Yes Events from last night noted and discussed with Clinical Staff Current Medication List: Reviewed Currently: Reports: Cough, Wheezing, HUMMEL, SOB, Sputum, Tobacco Use/Hx, Reflux Sx DVT Prophylaxis: Yes - Physical Examination Vital Signs and I&O: Last Vital Signs Temp 97.9 F 07/18/16 05:05 Pulse 102 07/18/16 05:05 Resp 18 07/18/16 05:05 BP 173/96 07/18/16 05:05 Pulse Ox 93 07/18/16 08:35 Oxygen Pulse Oxygen Saturation 93 O2 Device Nasal Cannula Oxygen Flow Rate 2 Fraction of Inspired Oxygen ( 35 FIO2) Intake & Output 07/16/16 07/17/16 07/18/16 07/19/16 06:59 06:59 06:59 06:59 Intake Total 1153 2821 2225 360 Output Total 2775 1875 4450 650 Balance -1622 946 -2225 -290 Patient's weight 56.841 kg 56.756 kg General: Alert, Oriented x3, Cooperative, Mild distress HEENT: Normal, PERRLA, EOMI, Anicteric Sclera Neck: Non-tender, Normal inspection, Limited range of motion Lymphatics: Normal Respiratory: Diminished, Rhonchi, Tachypnea, Wheezes Cardiovascular: Regular rate, Regular rate and rhythm, Normal S2, Murmurs GI: Normal bowel sounds, Soft, Non tender, No hepatospenomegaly Extremities/Musculoskeletal: Normal pulses, Swelling, DJD Skin: Warm,Dry and Intact, No rashes, No breakdown, Warmth Neurological: Normal speech, Cranial nerves 3-12 NL Psych/Mental Status: Anxious Lab/DI/Studies Reviewed: Laboratory Tests 07/18/16 07/18/16 04:45 06:46 pH 7.420 pCO2 57.0 H pO2 95.0 Potassium 3.9 Chloride 96 L BUN 11 Creatinine 0.60 L - Assessment (1) Acute bronchitis Acute J20.9 - ACUTE BRONCHITIS, UNSPECIFIED (2) Acute exacerbation of chronic obstructive airways disease Acute J44.1 - CHRONIC OBSTRUCTIVE PULMONARY DISEASE W (ACUTE) EXACERBATION Comment/Plan: Patient received IV steroids at high doses and nebulized bronchodilators. (3) Acute respiratory failure with hypoxia Acute J96.01 - ACUTE RESPIRATORY FAILURE WITH HYPOXIA Comment/Plan: Continue O2 nebs and pulmonary toilet. Monitor pulmonary status. Minimal progress on maximal pulmonary therapy. Repeat ABG in the morning ,may require BiPAP (4) Dehydration Acute E86.0 - DEHYDRATION Comment/Plan: Gentle IV hydration we provided (5) GERD (gastroesophageal reflux disease) Acute K21.9 - GASTRO-ESOPHAGEAL REFLUX DISEASE WITHOUT ESOPHAGITIS Qualifiers: Esophagitis presence: without esophagitis Qualified Code(s): K21.9 - Gastro -esophageal reflux disease without esophagitis Comment/Plan: continue ppi. (6) HTN (hypertension) Chronic I10 - ESSENTIAL (PRIMARY) HYPERTENSION Qualifiers: Hypertension type: essential hypertension Qualified Code(s): I10 - Essential (primary) hypertension Comment/Plan: Stable on home meds (7) Tobacco abuse Chronic Z72.0 - TOBACCO USE Comment/Plan: Smoking cessation counseling provided the patient. He was clearly advised that if he continues to smoke he will become permanently handicap from lung perspective Case Care Discussed with: Patient, Nursing Staff Total Time: 38
[2016-07-18] MEDS: NS 1,000 ML IV SCH (16:23)
[2016-07-18] MEDS: LEVOFLOXACIN 750 MG TAB PO SCH (16:24)
[2016-07-18] MEDS: ENOXAPARIN 40 MG/0.4 ML PFS SQ SCH (16:25)
--- NOTE | 2016-07-18 20:05 | HIMCONS ---
DATE OF CONSULT: REQUESTING PHYSICIAN: Chemo Bar M.D. REASON FOR CONSULTATION: Respiratory failure. HISTORY OF PRESENT ILLNESS: This patient is a 56-year-old male well known to me from previous office and hospital visits. The patient has end-stage COPD, and keeps on smoking. He was admitted 3 days ago with progressive worsening of chest congestion and dry cough and wheezing with tightness in his chest. He had some minimal yellowish thick phlegm as well at times. Currently, the patient has been on nebulizers, antibiotics, and steroids and has not been coughing up much and he feels like he is still congested quite a bit. Denies any hemoptysis, hematemesis, hematochezia, or melena. Denies any nausea, vomiting, diarrhea, or constipation. PAST MEDICAL HISTORY: Significant for hypertension, hypercholesterolemia, valvular heart disease, COPD, history of pneumonia, gastric reflux disease, benign prostatic hyperplasia, and anxiety. MEDICATIONS: In the chart were noted. ALLERGIES: THE PATIENT IS ALLERGIC TO PENICILLIN. FAMILY HISTORY: Significant for father at the age of 72 with dementia and mother at age 65 due to congestive heart failure. SOCIAL HISTORY: The patient has been a heavy smoker most of his adult life. No history of alcohol or drug abuse. REVIEW OF SYSTEMS: A detailed review of systems is negative except for as mentioned in the history of present illness. Does complain of some chills, and fevers in the beginning, but does not have them now. PHYSICAL EXAMINATION: VITAL SIGNS: Temperature 98 degrees Fahrenheit, pulse is 110, respiratory rate is 18, blood pressure is 138/85, pulse ox 93% on 2 L nasal cannula. CHEST: Decreased bilateral air entry with scattered wheezing. HEART: S1, S2. Regular. The patient has pansystolic murmur. EXTREMITIES: No clubbing, cyanosis, or edema. ABDOMEN: Soft and nontender. Bowel sounds present. Hepatosplenomegaly is absent. NEURO: Grossly nonfocal. The patient is moving all extremities. LABORATORY DATA: Blood gas showed a pH of 7.42, pCO2 of 57, pO2 was 95 on 35% oxygen with 16/8 BiPAP. Sodium 137, potassium 3.9, chloride 96, CO2 of 35, BUN is 11, creatinine 0.6, glucose is 121. CBC on admission; white count is 8.1, hemoglobin 16.2, hematocrit 47.9, platelets 212. IMAGING REPORTS: Chest x-ray was seen personally. The patient seems to have hyperinflated lung tena with no acute infiltrate. IMPRESSION: 1. Nflbi-[id number]-[id number] respiratory failure. 2. Chronic obstructive pulmonary disease with exacerbation. 3. Nicotine addiction. 4. Gastric reflux disease. 5. Hypertension. PLAN: The patient has been on Levaquin at 750 mg p.o. q.24 hours. I think it can be changed to 500 mg daily as patient has no acute infiltrate. Continue nebulizers, continue DVT and GI prophylaxis. Solu-Medrol 80 mg IV q.8 hours. I think the patient should improve, although he is going to take ( ). He is on Mucomyst already. I would get a chest x-ray and blood gas in the morning and continue supportive care. I would follow the patient closely. [id number]
[2016-07-18] MEDS: TRAZODONE 50 MG TAB PO SCH (21:14)
[2016-07-19] MEDS: Albuterol/Ipratropium Neb 3 ML NEB NEB SCH ×4 (01:19→20:32)
[2016-07-19 04:32] LABS: ALLEN'S TEST PASS
[2016-07-19] MEDS: METHYLPREDNISOLONE 125 MG/2 ML VIAL IV SCH ×4 (04:49→22:20)
[2016-07-19 04:56] LABS: ABG Draw Site Left Radial
[2016-07-19 04:57] LABS: BI-PAP 16/8 cm H2O
[2016-07-19] MEDS: PANTOPRAZOLE 40 MG TAB PO SCH (05:13)
[2016-07-19] MEDS: BENZONATATE 100 MG PERLES PO PRN (05:13)
[2016-07-19] MEDS: REGULAR INSULIN 100 UNITS/ML - 3 ML VIAL SQ SCH ×3 (06:04→17:23)
--- NOTE | 2016-07-19 07:39 | PCM.PULM ---
Chief Complaint: Respiratory failure acute on chronic with hypoxia COPD exacerbation Pneumonia Acute bronchitis Tobacco use Uneventful overnight Patient alert and responsive in bed. His breathing is still short when he walks in room and when coughing hard. Says nebulizer treatment makes him cough more he had an episode of worsening dyspnea when BiPAP was removed in the morning therefore he stays on BiPAP today Current complaints: Dyspnea, HUMMEL,dry cough, chest congestion, wheeze, tight chest. Denies chest pain, hemoptysis, fever, chills Medication list reviewed:yes Notes reviewed:yes, Events from last night noted and discussed with Clinical Staff DVT/GI prophylaxis:yes - Physical Examination Vital Signs and I&O: Last Vital Signs Temp 97.6 F 07/19/16 05:20 Pulse 84 07/19/16 05:20 Resp 20 07/19/16 05:20 BP 157/84 07/19/16 05:20 Pulse Ox 95 07/19/16 05:20 Oxygen Pulse Oxygen Saturation 95 O2 Device Nasal Cannula Oxygen Flow Rate 2 Fraction of Inspired Oxygen ( 35 FIO2) Intake & Output 07/16/16 07/17/16 07/18/16 07/19/16 23:59 23:59 23:59 23:59 Intake Total 2944 2648 1987 369 Output Total 3100 4300 2250 1350 Balance -156 -4875 -822 -891 Patient's weight 56.841 kg 56.756 kg 57.833 kg General: Alert, Oriented x3, Cooperative, No acute distress, Fatigue Respiratory: Accessory Muscle Use, Diminished, Rhonchi, Tachypnea, Wheezes Cardiovascular: Regular rate, Regular rate and rhythm, Normal S1, No Gallops, Rubs/Murmurs, Normal S2, Good Pedal Pulses (Dp pulses 2+ bilaterally) GI: Normal bowel sounds, Soft, Non tender, No hepatospenomegaly, No masses Extremities/Musculoskeletal: Normal pulses Skin: Warm,Dry and Intact, No rashes, No breakdown, No significant lesion Neurological: Normal Steady Gait, Normal speech, Strength at 5/5 X4 ext, Normal tone, Cranial nerves 3-12 NL, Reflexes 2+ Psych/Mental Status: Appropriate Result Diagrams: 07/15/16 15:15 07/18/16 06:46 Labs (last 24 hours): Laboratory Results - last 24 hr 07/18/16 07/18/16 07/18/16 06:46 08:40 11:27 Puncture Site pH pCO2 pO2 HCO3 Total CO2 Base Excess FiO2 % Mode BiPAP Specimen Drawn By Sodium 137 Potassium 3.9 Chloride 96 L Carbon Dioxide 35 H Anion Gap 10 BUN 11 Creatinine 0.60 L Estimated GFR (MDRD) > 60 Glucose 121 H POC Capillary Glucose 165 H Calculated Osmolality 264 L Calcium 8.8 Magnesium 2.10 Stool Occult Blood Neg 07/18/16 07/18/16 07/19/16 16:55 23:07 04:25 Puncture Site Left radial pH 7.400 pCO2 60.0 H pO2 91.0 HCO3 37.2 H Total CO2 39.0 H Base Excess 10.0 H FiO2 % 35% Mode BiPAP 14/02 Specimen Drawn By Alhenmanuel Sodium Potassium Chloride Carbon Dioxide Anion Gap BUN Creatinine Estimated GFR (MDRD) Glucose POC Capillary Glucose 163 H 95 Calculated Osmolality Calcium Magnesium Stool Occult Blood 07/19/16 05:27 Puncture Site pH pCO2 pO2 HCO3 Total CO2 Base Excess FiO2 % Mode BiPAP Specimen Drawn By Sodium Potassium Chloride Carbon Dioxide Anion Gap BUN Creatinine Estimated GFR (MDRD) Glucose POC Capillary Glucose 126 H Calculated Osmolality Calcium Magnesium Stool Occult Blood Lab/DI/Studies Reviewed: Cxray: 1 view Chest x-ray was seen personally patient seems to have hyperinflated lung tena with peribronchial cuffing signifying bronchitis and some evidence of bronchiectasis was noted as well Medications: Pantoprazole Sodium (Protonix) 40 mg PO 0600 [facility] Stop: 07/29/16 16:59 Last Admin: 07/19/16 05:13 Dose: 40 mg Acetaminophen (Tylenol Suppository) 650 mg SC Q6H PRN; Protocol PRN Reason: Mild Pain or Fever above 100.4 Stop: 07/29/16 16:59 Acetaminophen (Tylenol Tablet) 650 mg PO Q6H PRN; Protocol PRN Reason: Mild Pain or Fever above 100.4 Stop: 07/29/16 16:59 Acetylcysteine (Mucomyst) 4 ml NEB RTBID [facility] Stop: 07/31/16 16:59 Last Admin: 07/19/16 08:04 Dose: 4 ml Albuterol/Ipratropium (Duoneb) 3 ml NEB Q2H PRN PRN Reason: Wheezing Stop: 07/29/16 16:59 Aspirin (Ecotrin) 81 mg PO DAILYWM [facility] Stop: 07/29/16 16:59 Last Admin: 07/19/16 08:27 Dose: 81 mg Benzonatate (Tessalon) 100 mg PO TID PRN PRN Reason: Cough - First Option Stop: 07/29/16 16:59 Last Admin: 07/19/16 05:13 Dose: 100 mg Budesonide (Pulmicort) 0.5 mg NEB RTBID [facility] Stop: 07/29/16 16:59 Last Admin: 07/19/16 08:13 Dose: 0.5 mg Docusate Sodium (Colace) 100 mg PO BID PRN PRN Reason: Stool Softener Stop: 07/29/16 16:59 Doxazosin Mesylate (Cardura) 2 mg PO DAILY [facility] Stop: 08/01/16 08:59 Last Admin: 07/19/16 08:27 Dose: 2 mg Enoxaparin Sodium (Lovenox) 40 mg SQ Q24H [facility] Stop: 07/29/16 17:59 Last Admin: 07/18/16 16:25 Dose: 40 mg Guaifenesin (Mucinex) 1,200 mg PO Q12 [facility] Stop: 07/29/16 16:59 Last Admin: 07/19/16 08:26 Dose: 1,200 mg Guaifenesin/Dextromethorphan (Robitussin Dm) 10 ml PO Q6H PRN PRN Reason: Cough - Alternative Stop: 07/29/16 16:59 Insulin Human Regular (Humulin R) 0 units SQ Q6 [facility] PRN Reason: Protocol Stop: 07/29/16 16:59 Last Admin: 07/19/16 06:04 Dose: Not Given Levofloxacin (Levaquin) 750 mg PO Q24H [facility] Stop: 07/22/16 16:59 Last Admin: 07/18/16 16:24 Dose: 750 mg Lisinopril (Zestril) 30 mg PO DAILY [facility] Stop: 07/30/16 08:59 Last Admin: 07/19/16 08:26 Dose: 30 mg Lorazepam (Ativan) 0.5 mg IV Q6H PRN PRN Reason: Anxiety or Agitation Stop: 07/31/16 16:59 Last Admin: 07/19/16 08:24 Dose: 0.5 mg Methylprednisolone Sodium Succinate (Solu-Medrol) 80 mg IV Q6H [facility] Stop: 07/29/16 15:59 Last Admin: 07/19/16 04:49 Dose: Not Given Ondansetron HCl (Zofran) 4 mg IV Q6H PRN PRN Reason: Nausea/Vomiting - First Option Stop: 07/29/16 16:59 Promethazine HCl (Phenergan) 12.5 mg IV Q6H PRN; Protocol PRN Reason: Nausea/Vomiting - Alternative Stop: 07/29/16 16:59 Simethicone (Mylicon, Mylanta Gas) 80 mg PO Q3H PRN PRN Reason: Intestinal Gas Stop: 07/29/16 16:59 Sodium Chloride (Normal Saline) 1,000 mls @ 40 mls/hr IV Q24H [facility] Stop: 07/29/16 16:59 Last Admin: 07/18/16 16:23 Dose: 40 mls/hr Trazodone HCl (Desyrel) 50 mg PO QHS [facility] Stop: 07/29/16 21:59 Last Admin: 07/18/16 21:14 Dose: 50 mg - Assessment/Plan (1) Acute exacerbation of chronic obstructive airways disease Acute J44.1 - CHRONIC OBSTRUCTIVE PULMONARY DISEASE W (ACUTE) EXACERBATION Comment/Plan: Patient is continue to be on the current antibiotics nebulizers oxygen and BiPAP his Solu-Medrol was increased today to 100 mg IV and I think that tomorrow we can cut it down to 60 mg IV q.6 hours continue supportive care DVT and GI prophylaxis patient seems to have mild bronchiectasis as well and therefore given his baseline poor pulmonary condition and persistent nicotine addiction it might take longer for him to get off off the ventilator . Blood gas has been relatively stable (2) Acute respiratory failure with hypoxia Acute J96.01 - ACUTE RESPIRATORY FAILURE WITH HYPOXIA Comment/Plan: Continue oxygen and BiPAP for today and would re-evaluate in the morning (3) Pneumonia Acute J18.9 - PNEUMONIA, UNSPECIFIED ORGANISM P A L L Comment/Plan: Patient does not seem to have any acute infiltrate continue the antibiotics for now for per COPD exacerbation (4) Tobacco abuse Chronic Z72.0 - TOBACCO USE Comment/Plan: Patient was told in no uncertain terms to quit smoking he agrees and understands
[2016-07-19] MEDS: ACETYLCYSTEINE 20% SOLN 4 ML NEB SCH (08:04)
[2016-07-19] MEDS: BUDESONIDE 0.5 MG NEB NEB SCH ×2 (08:13→20:33)
--- NOTE | 2016-07-19 08:18 | DIRPT ---
CLINICAL DATA: 56-year-old male with respiratory failure, shortness of breath. Initial encounter. EXAM: PORTABLE CHEST 1 VIEW COMPARISON: 07/16/2016 and earlier. FINDINGS: Portable AP upright view at 0620 hours. Stable large lung volumes. Normal cardiac size and mediastinal contours. Chronic increased interstitial markings. Subtle increased reticulonodular density in both mid lungs greater on the left. No other acute pulmonary opacity. No pleural effusion identified. Chronic right rib fractures. Calcified aortic atherosclerosis. IMPRESSION: Chronic hyperinflation with superimposed bilateral mid lung increased reticulonodular opacity compatible with acute infectious exacerbation. No pleural effusion identified. Electronically Signed By: Guzman Guardado M.D. On: 07/19/2016 08:15
[2016-07-19] MEDS: LORAZEPAM 2 MG/ML VIAL IV PRN ×2 (08:24→22:22)
[2016-07-19] MEDS: LISINOPRIL 20 MG TAB PO SCH (08:26)
[2016-07-19] MEDS: GUAIFENESIN 600 MG LA TAB PO SCH ×2 (08:26→19:58)
[2016-07-19] MEDS: DOXAZOSIN MESYLATE 1 MG TAB PO SCH (08:27)
--- NOTE | 2016-07-19 11:42 | GENMEDPROG ---
Chief Complaint: Severe COPD exacerbation Subjective Note: Rested on BiPAP overnight was doing relatively well, but this morning he became more hypoxic with increased work of breathing when his BiPAP was removed, so he is placed back on the BiPAP. He is currently breathing comfortably on BiPAP. He also has an associated headache. Notes Reviewed: Yes Events from last night noted and discussed with Clinical Staff Current Medication List: Reviewed Currently: Reports: Cough, Wheezing, HUMMEL, SOB, Sputum, Tobacco Use/Hx, Reflux Sx DVT Prophylaxis: Yes - Physical Examination Vital Signs and I&O: Last Vital Signs Temp 97.6 F 07/19/16 05:20 Pulse 102 07/19/16 07:58 Resp 19 07/19/16 11:13 BP 157/84 07/19/16 05:20 Pulse Ox 94 07/19/16 08:50 Oxygen Pulse Oxygen Saturation 94 O2 Device Nasal Cannula Oxygen Flow Rate 2 Fraction of Inspired Oxygen ( 35 FIO2) Intake & Output 07/17/16 07/18/16 07/19/16 07/20/16 06:59 06:59 06:59 06:59 Intake Total 2821 2225 2019 350 Output Total 1875 4450 2550 950 Balance 946 -2225 -531 -600 Patient's weight 56.756 kg 57.833 kg General: Alert, Oriented x3, Cooperative, Mild distress HEENT: Normal, PERRLA, EOMI, Anicteric Sclera Neck: Non-tender, Normal inspection, Limited range of motion Lymphatics: Normal Respiratory: Diminished, Rhonchi, Wheezes, Other (Very tight, tighter than yesterday. Currently breathing on BiPAP.) Cardiovascular: Regular rate, Regular rate and rhythm, Normal S2, Murmurs GI: Normal bowel sounds, Soft, Non tender, No hepatospenomegaly Extremities/Musculoskeletal: Normal pulses, Swelling, DJD Skin: Warm,Dry and Intact, No rashes, No breakdown, Warmth Neurological: Normal speech, Cranial nerves 3-12 NL Psych/Mental Status: Anxious Lab/DI/Studies Reviewed: Laboratory Tests 07/19/16 04:25 pH 7.400 pCO2 60.0 H pO2 91.0 - Assessment (1) Acute exacerbation of chronic obstructive airways disease Acute J44.1 - CHRONIC OBSTRUCTIVE PULMONARY DISEASE W (ACUTE) EXACERBATION Comment/Plan: Patient received IV steroids at high doses and nebulized bronchodilators. Since he is more tight today, I am increasing his IV steroids to 100 IV q.8h. (2) Acute bronchitis Acute J20.9 - ACUTE BRONCHITIS, UNSPECIFIED (3) Acute respiratory failure with hypoxia Acute J96.01 - ACUTE RESPIRATORY FAILURE WITH HYPOXIA Comment/Plan: Continue O2 nebs and pulmonary toilet. Monitor pulmonary status. Minimal progress on maximal pulmonary therapy. Repeat ABG in the morning ,may require BiPAP (4) Dehydration Acute E86.0 - DEHYDRATION Comment/Plan: Gentle IV hydration we provided (5) GERD (gastroesophageal reflux disease) Acute K21.9 - GASTRO-ESOPHAGEAL REFLUX DISEASE WITHOUT ESOPHAGITIS Qualifiers: Esophagitis presence: without esophagitis Qualified Code(s): K21.9 - Gastro -esophageal reflux disease without esophagitis Comment/Plan: continue ppi. (6) HTN (hypertension) Chronic I10 - ESSENTIAL (PRIMARY) HYPERTENSION Qualifiers: Hypertension type: essential hypertension Qualified Code(s): I10 - Essential (primary) hypertension Comment/Plan: Stable on home meds (7) Tobacco abuse Chronic Z72.0 - TOBACCO USE Comment/Plan: Smoking cessation counseling provided the patient. He was clearly advised that if he continues to smoke he will become permanently handicap from lung perspective - Plan Continue present care, he has not improved significantly yet. Also be followed by Pulmonary, appreciate their input and assistance.
[2016-07-19] MEDS: LEVOFLOXACIN 750 MG TAB PO SCH (15:56)
[2016-07-19] MEDS: NS 1,000 ML IV SCH ×2 (16:10→19:58)
[2016-07-19] MEDS: ENOXAPARIN 40 MG/0.4 ML PFS SQ SCH (17:23)
[2016-07-19] MEDS: TRAZODONE 50 MG TAB PO SCH (19:58)
[2016-07-20] MEDS: REGULAR INSULIN 100 UNITS/ML - 3 ML VIAL SQ SCH ×4 (00:18→17:38)
[2016-07-20] MEDS: Albuterol/Ipratropium Neb 3 ML NEB NEB SCH ×4 (01:26→20:35)
[2016-07-20] MEDS: METHYLPREDNISOLONE 125 MG/2 ML VIAL IV SCH ×4 (04:11→22:12)
[2016-07-20] MEDS: PANTOPRAZOLE 40 MG TAB PO SCH (05:53)
[2016-07-20] MEDS: BUDESONIDE 0.5 MG NEB NEB SCH ×2 (07:26→20:35)
[2016-07-20] MEDS: GUAIFENESIN 600 MG LA TAB PO SCH ×2 (08:28→20:27)
[2016-07-20] MEDS: LISINOPRIL 20 MG TAB PO SCH (08:28)
[2016-07-20] MEDS: DOXAZOSIN MESYLATE 1 MG TAB PO SCH (08:28)
--- NOTE | 2016-07-20 11:10 | GENMEDPROG ---
Chief Complaint: COPD exacerbation Subjective Note: Resting comfortably in bed, feels like his congestion is improved. He still feels like he has some stuff they can't cough up. Overall he feels stable. Currently: Reports: Cough, Wheezing, HUMMEL, SOB, Sputum, Tobacco Use/Hx, Reflux Sx DVT Prophylaxis: Yes - Physical Examination Vital Signs and I&O: Last Vital Signs Temp 97.8 F 07/20/16 05:16 Pulse 101 07/20/16 08:27 Resp 18 07/20/16 07:28 BP 141/80 07/20/16 08:27 Pulse Ox 92 07/20/16 07:28 Oxygen Pulse Oxygen Saturation 92 O2 Device Nasal Cannula Oxygen Flow Rate 2 Fraction of Inspired Oxygen ( 35 FIO2) Intake & Output 07/18/16 07/19/16 07/20/16 07/21/16 06:59 06:59 06:59 06:59 Intake Total 2225 2019 2291 558 Output Total 6010 2550 4775 1600 Balance -2225 -531 -2484 -1042 Patient's weight 56.756 kg 57.833 kg 58.559 kg General: Alert, Oriented x3, Cooperative, Mild distress HEENT: Normal, PERRLA, EOMI, Anicteric Sclera Neck: Non-tender, Normal inspection, Limited range of motion Lymphatics: Normal Respiratory: Diminished, Other (Less tight than yesterday, he is currently on nasal cannula oxygen with less rhonchi and rales.) Cardiovascular: Regular rate, Regular rate and rhythm, Normal S2, Murmurs GI: Normal bowel sounds, Soft, Non tender, No hepatospenomegaly Extremities/Musculoskeletal: Normal pulses, Swelling, DJD Skin: Warm,Dry and Intact, No rashes, No breakdown, Warmth Neurological: Normal speech, Cranial nerves 3-12 NL Lab/DI/Studies Reviewed: Laboratory Tests 07/19/16 04:25 pH 7.400 pCO2 60.0 H pO2 91.0 - Assessment (1) Acute exacerbation of chronic obstructive airways disease Acute J44.1 - CHRONIC OBSTRUCTIVE PULMONARY DISEASE W (ACUTE) EXACERBATION Comment/Plan: Patient received IV steroids at high doses and nebulized bronchodilators. Improved with increased dose of IV steroids, will keep steroids at stable dose today. (2) Acute bronchitis Acute J20.9 - ACUTE BRONCHITIS, UNSPECIFIED (3) Acute respiratory failure with hypoxia Acute J96.01 - ACUTE RESPIRATORY FAILURE WITH HYPOXIA Comment/Plan: Continue O2 nebs and pulmonary toilet. Monitor pulmonary status. Minimal progress on maximal pulmonary therapy. Repeat ABG in the morning ,may require BiPAP (4) Dehydration Acute E86.0 - DEHYDRATION Comment/Plan: Gentle IV hydration we provided (5) GERD (gastroesophageal reflux disease) Acute K21.9 - GASTRO-ESOPHAGEAL REFLUX DISEASE WITHOUT ESOPHAGITIS Qualifiers: Esophagitis presence: without esophagitis Qualified Code(s): K21.9 - Gastro -esophageal reflux disease without esophagitis Comment/Plan: continue ppi. (6) HTN (hypertension) Chronic I10 - ESSENTIAL (PRIMARY) HYPERTENSION Qualifiers: Hypertension type: essential hypertension Qualified Code(s): I10 - Essential (primary) hypertension Comment/Plan: Stable on home meds (7) Tobacco abuse Chronic Z72.0 - TOBACCO USE Comment/Plan: Smoking cessation counseling provided the patient. He was clearly advised that if he continues to smoke he will become permanently handicap from lung perspective
[2016-07-20] MEDS: NS 1,000 ML IV SCH ×2 (11:58→23:18)
--- NOTE | 2016-07-20 13:58 | PCM.PULM ---
Chief Complaint: Uneventful overnight Patient breathing improving. Less cough and wheezing. On oxygen Solu-Medrol is increased to 100 mg IV q.6 hours today Current complaints: SOB,HUMMEL,cough,wheeze. No chest pain. Medication list and notes reviewed:yes - Physical Examination Vital Signs and I&O: Last Vital Signs Temp 97.8 F 07/20/16 05:16 Pulse 101 07/20/16 08:27 Resp 18 07/20/16 07:28 BP 141/80 07/20/16 08:27 Pulse Ox 92 07/20/16 07:28 Oxygen Pulse Oxygen Saturation 92 O2 Device Nasal Cannula Oxygen Flow Rate 2 Fraction of Inspired Oxygen ( 35 FIO2) Intake & Output 07/17/16 07/18/16 07/19/16 07/20/16 23:59 23:59 23:59 23:59 Intake Total 2648 4966 6670 889 Output Total 4309 6707 3502 5426 Balance -1652 -263 -1171 -2986 Patient's weight 56.756 kg 57.833 kg 58.559 kg General: Alert, Oriented x3, No acute distress Respiratory: Diminished, Wheezes (mild bilaterally) Cardiovascular: Regular rate, Regular rate and rhythm, Normal S1, No Gallops, Rubs/Murmurs, Normal S2 GI: Normal bowel sounds, Soft, Non tender, No hepatospenomegaly, No masses Extremities/Musculoskeletal: Normal pulses Skin: Warm,Dry and Intact, No rashes, No breakdown, No significant lesion Neurological: Normal Steady Gait, Normal speech, Strength at 5/5 X4 ext, Normal tone, Cranial nerves 3-12 NL Psych/Mental Status: Normal Affect Result Diagrams: 07/15/16 15:15 07/18/16 06:46 Labs (last 24 hours): Laboratory Results - last 24 hr 07/20/16 07/20/16 05:28 11:27 POC Capillary Glucose 140 H 146 H Lab/DI/Studies Reviewed: Medications Pantoprazole Sodium (Protonix) 40 mg PO 0600 [facility] Stop: 07/29/16 16:59 Last Admin: 07/19/16 05:13 Dose: 40 mg Acetaminophen (Tylenol Suppository) 650 mg MD Q6H PRN; Protocol PRN Reason: Mild Pain or Fever above 100.4 Stop: 07/29/16 16:59 Acetaminophen (Tylenol Tablet) 650 mg PO Q6H PRN; Protocol PRN Reason: Mild Pain or Fever above 100.4 Stop: 07/29/16 16:59 Acetylcysteine (Mucomyst) 4 ml NEB RTBID [facility] Stop: 07/31/16 16:59 Last Admin: 07/19/16 08:04 Dose: 4 ml Albuterol/Ipratropium (Duoneb) 3 ml NEB Q2H PRN PRN Reason: Wheezing Stop: 07/29/16 16:59 Aspirin (Ecotrin) 81 mg PO DAILYWM [facility] Stop: 07/29/16 16:59 Last Admin: 07/19/16 08:27 Dose: 81 mg Benzonatate (Tessalon) 100 mg PO TID PRN PRN Reason: Cough - First Option Stop: 07/29/16 16:59 Last Admin: 07/19/16 05:13 Dose: 100 mg Budesonide (Pulmicort) 0.5 mg NEB RTBID [facility] Stop: 07/29/16 16:59 Last Admin: 07/19/16 08:13 Dose: 0.5 mg Docusate Sodium (Colace) 100 mg PO BID PRN PRN Reason: Stool Softener Stop: 07/29/16 16:59 Doxazosin Mesylate (Cardura) 2 mg PO DAILY [facility] Stop: 08/01/16 08:59 Last Admin: 07/19/16 08:27 Dose: 2 mg Enoxaparin Sodium (Lovenox) 40 mg SQ Q24H [facility] Stop: 07/29/16 17:59 Last Admin: 07/18/16 16:25 Dose: 40 mg Guaifenesin (Mucinex) 1,200 mg PO Q12 [facility] Stop: 07/29/16 16:59 Last Admin: 07/19/16 08:26 Dose: 1,200 mg Guaifenesin/Dextromethorphan (Robitussin Dm) 10 ml PO Q6H PRN PRN Reason: Cough - Alternative Stop: 07/29/16 16:59 Insulin Human Regular (Humulin R) 0 units SQ Q6 [facility] PRN Reason: Protocol Stop: 07/29/16 16:59 Last Admin: 07/19/16 06:04 Dose: Not Given Lisinopril (Zestril) 30 mg PO DAILY [facility] Stop: 07/30/16 08:59 Last Admin: 07/19/16 08:26 Dose: 30 mg Lorazepam (Ativan) 0.5 mg IV Q6H PRN PRN Reason: Anxiety or Agitation Stop: 07/31/16 16:59 Last Admin: 07/19/16 08:24 Dose: 0.5 mg Ondansetron HCl (Zofran) 4 mg IV Q6H PRN PRN Reason: Nausea/Vomiting - First Option Stop: 07/29/16 16:59 Promethazine HCl (Phenergan) 12.5 mg IV Q6H PRN; Protocol PRN Reason: Nausea/Vomiting - Alternative Stop: 07/29/16 16:59 Simethicone (Mylicon, Mylanta Gas) 80 mg PO Q3H PRN PRN Reason: Intestinal Gas Stop: 07/29/16 16:59 Sodium Chloride (Normal Saline) 1,000 mls @ 40 mls/hr IV Q24H [facility] Stop: 07/29/16 16:59 Last Admin: 07/18/16 16:23 Dose: 40 mls/hr Trazodone HCl (Desyrel) 50 mg PO QHS [facility] Stop: 07/29/16 21:59 Last Admin: 07/18/16 21:14 Dose: 50 mg Doxazosin Mesylate (Cardura) 2 mg PO DAILY [facility] Stop: 08/01/16 08:59 Last Admin: 07/20/16 08:28 Dose: 2 mg Levofloxacin (Levaquin) 750 mg PO Q24H [facility] Stop: 07/22/16 16:59 Last Admin: 07/19/16 15:56 Dose: 750 mg Methylprednisolone Sodium Succinate (Solu-Medrol) 100 mg IV Q6H [facility] Stop: 07/29/16 15:59 Last Admin: 07/20/16 09:58 Dose: 100 mg - Assessment/Plan (1) Acute exacerbation of chronic obstructive airways disease Acute J44.1 - CHRONIC OBSTRUCTIVE PULMONARY DISEASE W (ACUTE) EXACERBATION Comment/Plan: This no change in current treatment other than the fact that Solu-Medrol was increased to 100 mg IV q.6 hours and patient's wheezing is better today I would continue the 100 mg IV q.6 hours of Solu-Medrol for now along with the current antibiotics nebulizers oxygen and BiPAP his Solu-Medrol was increased today to 100 mg IV and I think that tomorrow we can cut it down to 60 mg IV q.6 hours continue supportive care DVT and GI prophylaxis patient seems to have mild bronchiectasis as well and therefore given his baseline poor pulmonary condition patient was told to quit smoking chest x-ray to be done in the morning (2) Acute respiratory failure with hypoxia Acute J96.01 - ACUTE RESPIRATORY FAILURE WITH HYPOXIA Comment/Plan: Continue oxygen and BiPAP for today and would re-evaluate in the morning (3) Pneumonia Acute J18.9 - PNEUMONIA, UNSPECIFIED ORGANISM P A L L Comment/Plan: Patient does not seem to have any acute infiltrate continue the antibiotics for now for per COPD exacerbation (4) Tobacco abuse Chronic Z72.0 - TOBACCO USE Comment/Plan: Patient was told in no uncertain terms to quit smoking he agrees and understands
[2016-07-20] MEDS: LEVOFLOXACIN 750 MG TAB PO SCH (15:17)
[2016-07-20] MEDS: ENOXAPARIN 40 MG/0.4 ML PFS SQ SCH (17:38)
[2016-07-20] MEDS: TRAZODONE 50 MG TAB PO SCH (20:27)
[2016-07-20] MEDS: LORAZEPAM 2 MG/ML VIAL IV PRN (23:46)
[2016-07-21] MEDS: REGULAR INSULIN 100 UNITS/ML - 3 ML VIAL SQ SCH ×4 (00:30→17:40)
[2016-07-21] MEDS: Albuterol/Ipratropium Neb 3 ML NEB NEB SCH ×4 (02:26→19:07)
[2016-07-21] MEDS: METHYLPREDNISOLONE 125 MG/2 ML VIAL IV SCH ×4 (04:16→20:28)
[2016-07-21] MEDS: PANTOPRAZOLE 40 MG TAB PO SCH (05:25)
[2016-07-21 06:22] LABS: ALLEN'S TEST PASS; BEb 8.8 (+/- 2); TCO2 35.6 MMOL/L (23-27)
[2016-07-21 06:28] LABS: ABG Draw Site Right Radial
[2016-07-21 07:21] LABS: BLOOD UREA NITROGEN 12 MG/DL (9-20); CALCIUM 8.6 MG/DL (8.4-10.2); CALCULATED OSMOLALITY 263 MOs/Kg (270-290); CHLORIDE 96 mEq/L (98-107); GLUCOSE 121 MG/DL (70-99); SODIUM LEVEL 136 mEq/L (137-146)
--- NOTE | 2016-07-21 08:43 | PCM.PULM ---
Chief Complaint: Respiratory failure acute on chronic Pneumonia COPD exacerbation Acute bronchitis Patient breathing is slowly improving. Has less wheeze and cough. Still has significant shortness of breath when moving around. Current complaints: SOB,HUMMEL,cough, wheeze,sputum. Current medication list and notes reviewed:yes, Events from last night noted and discussed with Clinical Staff - Physical Examination Vital Signs and I&O: Last Vital Signs Temp 98.0 F 07/21/16 05:56 Pulse 94 07/21/16 05:56 Resp 20 07/21/16 05:56 BP 148/84 07/21/16 05:56 Pulse Ox 93 07/21/16 05:56 Oxygen Pulse Oxygen Saturation 93 O2 Device Nasal Cannula Oxygen Flow Rate 2 Fraction of Inspired Oxygen ( 35 FIO2) Intake & Output 07/18/16 07/19/16 07/20/16 07/21/16 23:59 23:59 23:59 23:59 Intake Total 1986 2120 1802 287 Output Total 2963 3168 5286 1151 Balance -563 -0399 -6492 -6402 Patient's weight 56.756 kg 57.833 kg 58.559 kg 58.831 kg General: Alert, Oriented x3, Cooperative, No acute distress Respiratory: Diminished, Rhonchi, Wheezes Cardiovascular: Regular rate, Regular rate and rhythm, Normal S1, No Gallops, Rubs/Murmurs, Normal S2 GI: Normal bowel sounds, Soft, Non tender, No hepatospenomegaly, No masses Extremities/Musculoskeletal: Normal pulses Skin: Warm,Dry and Intact, No rashes, No significant lesion Neurological: Normal Steady Gait, Normal speech, Strength at 5/5 X4 ext, Cranial nerves 3-12 NL, Reflexes 2+ Psych/Mental Status: Appropriate Result Diagrams: 07/15/16 15:15 07/21/16 06:38 Labs (last 24 hours): Laboratory Results - last 24 hr 07/21/16 07/21/16 07/21/16 05:34 06:18 06:38 Puncture Site Right radial pH 7.460 H pCO2 48.0 H pO2 64.0 L HCO3 34.1 H Total CO2 35.6 H Base Excess 8.8 H FiO2 % Nc 3lpm Specimen Drawn By Robcha Sodium 136 L Potassium 4.1 Chloride 96 L Carbon Dioxide 32 Anion Gap 12 BUN 12 Creatinine 0.60 L Estimated GFR (MDRD) > 60 Glucose 121 H POC Capillary Glucose 133 H Calculated Osmolality 263 L Calcium 8.6 Lab/DI/Studies Reviewed: Medications Pantoprazole Sodium (Protonix) 40 mg PO 0600 [facility] Stop: 07/29/16 16:59 Last Admin: 07/19/16 05:13 Dose: 40 mg Doxazosin Mesylate (Cardura) 2 mg PO DAILY [facility] Stop: 08/01/16 08:59 Last Admin: 07/20/16 08:28 Dose: 2 mg Methylprednisolone Sodium Succinate (Solu-Medrol) 100 mg IV Q6H [facility] Stop: 07/29/16 15:59 Last Admin: 07/20/16 09:58 Dose: 100 mg Acetaminophen (Tylenol Suppository) 650 mg HI Q6H PRN; Protocol PRN Reason: Mild Pain or Fever above 100.4 Stop: 07/29/16 16:59 Acetaminophen (Tylenol Tablet) 650 mg PO Q6H PRN; Protocol PRN Reason: Mild Pain or Fever above 100.4 Stop: 07/29/16 16:59 Acetylcysteine (Mucomyst) 4 ml NEB RTBID [facility] Stop: 07/31/16 16:59 Last Admin: 07/19/16 08:04 Dose: 4 ml Albuterol/Ipratropium (Duoneb) 3 ml NEB Q2H PRN PRN Reason: Wheezing Stop: 07/29/16 16:59 Aspirin (Ecotrin) 81 mg PO DAILYWM [facility] Stop: 07/29/16 16:59 Last Admin: 07/19/16 08:27 Dose: 81 mg Benzonatate (Tessalon) 100 mg PO TID PRN PRN Reason: Cough - First Option Stop: 07/29/16 16:59 Last Admin: 07/19/16 05:13 Dose: 100 mg Budesonide (Pulmicort) 0.5 mg NEB RTBID [facility] Stop: 07/29/16 16:59 Last Admin: 07/19/16 08:13 Dose: 0.5 mg Docusate Sodium (Colace) 100 mg PO BID PRN PRN Reason: Stool Softener Stop: 07/29/16 16:59 Doxazosin Mesylate (Cardura) 2 mg PO DAILY [facility] Stop: 08/01/16 08:59 Last Admin: 07/19/16 08:27 Dose: 2 mg Enoxaparin Sodium (Lovenox) 40 mg SQ Q24H [facility] Stop: 07/29/16 17:59 Last Admin: 07/18/16 16:25 Dose: 40 mg Guaifenesin (Mucinex) 1,200 mg PO Q12 [facility] Stop: 07/29/16 16:59 Last Admin: 07/19/16 08:26 Dose: 1,200 mg Guaifenesin/Dextromethorphan (Robitussin Dm) 10 ml PO Q6H PRN PRN Reason: Cough - Alternative Stop: 07/29/16 16:59 Insulin Human Regular (Humulin R) 0 units SQ Q6 [facility] PRN Reason: Protocol Stop: 07/29/16 16:59 Last Admin: 07/19/16 06:04 Dose: Not Given Levofloxacin (Levaquin) 750 mg PO Q24H [facility] Stop: 07/22/16 16:59 Last Admin: 07/18/16 16:24 Dose: 750 mg Lisinopril (Zestril) 30 mg PO DAILY [facility] Stop: 07/30/16 08:59 Last Admin: 07/19/16 08:26 Dose: 30 mg Lorazepam (Ativan) 0.5 mg IV Q6H PRN PRN Reason: Anxiety or Agitation Stop: 07/31/16 16:59 Last Admin: 07/19/16 08:24 Dose: 0.5 mg Ondansetron HCl (Zofran) 4 mg IV Q6H PRN PRN Reason: Nausea/Vomiting - First Option Stop: 07/29/16 16:59 Promethazine HCl (Phenergan) 12.5 mg IV Q6H PRN; Protocol PRN Reason: Nausea/Vomiting - Alternative Stop: 07/29/16 16:59 Simethicone (Mylicon, Mylanta Gas) 80 mg PO Q3H PRN PRN Reason: Intestinal Gas Stop: 07/29/16 16:59 Sodium Chloride (Normal Saline) 1,000 mls @ 40 mls/hr IV Q24H [facility] Stop: 07/29/16 16:59 Last Admin: 07/18/16 16:23 Dose: 40 mls/hr Trazodone HCl (Desyrel) 50 mg PO QHS [facility] Stop: 07/29/16 21:59 Last Admin: 07/18/16 21:14 Dose: 50 mg - Assessment/Plan (1) Acute exacerbation of chronic obstructive airways disease Acute J44.1 - CHRONIC OBSTRUCTIVE PULMONARY DISEASE W (ACUTE) EXACERBATION Comment/Plan: Patient breathing slowly improving. I had long d/w Hospitalist regarding transferring patient to [facility]. Would continue BIPAP and supplemental oxygen prn, IV steroids, IV antibiotics, duo nebulizer treatment, GI and DVT prophylaxis. Would continue full supportive care (2) Acute respiratory failure with hypoxia Acute J96.01 - ACUTE RESPIRATORY FAILURE WITH HYPOXIA Comment/Plan: Improving slowly. Would continue oxygen and BiPAP prn (3) Pneumonia Acute J18.9 - PNEUMONIA, UNSPECIFIED ORGANISM P A L L Comment/Plan: Would continue IV antibiotics (4) Tobacco abuse Chronic Z72.0 - TOBACCO USE Comment/Plan: Patient was told in no uncertain terms to quit smoking he agrees and understands
[2016-07-21] MEDS: BUDESONIDE 0.5 MG NEB NEB SCH ×2 (09:02→19:10)
[2016-07-21] MEDS: GUAIFENESIN 600 MG LA TAB PO SCH ×2 (09:11→20:27)
[2016-07-21] MEDS: DOXAZOSIN MESYLATE 1 MG TAB PO SCH (09:11)
[2016-07-21] MEDS: LISINOPRIL 20 MG TAB PO SCH (09:11)
--- NOTE | 2016-07-21 12:39 | GENMEDPROG ---
Chief Complaint: COPD exacerbation Subjective Note: Doing slightly better today. Ambulating a little bit with reduced dyspnea with exertion. Notes Reviewed: Yes Events from last night noted and discussed with Clinical Staff Current Medication List: Reviewed Currently: Reports: Cough, Wheezing, HUMMEL, SOB, Sputum, Tobacco Use/Hx, Reflux Sx DVT Prophylaxis: Yes - Physical Examination Vital Signs and I&O: Last Vital Signs Temp 98.0 F 07/21/16 05:56 Pulse 90 07/21/16 08:00 Resp 20 07/21/16 08:00 BP 148/84 07/21/16 05:56 Pulse Ox 95 07/21/16 08:00 Oxygen Pulse Oxygen Saturation 95 O2 Device Nasal Cannula Oxygen Flow Rate 2 Fraction of Inspired Oxygen ( 35 FIO2) Intake & Output 07/19/16 07/20/16 07/21/16 07/22/16 06:59 06:59 06:59 06:59 Intake Total 2018 2290 1758 240 Output Total 0213 4716 4000 275 [facility] -[phone] -[phone] -2242 -35 Patient's weight 57.833 kg 58.559 kg 58.831 kg General: Alert, Oriented x3, Cooperative, Mild distress HEENT: Normal, PERRLA, EOMI, Anicteric Sclera Neck: Non-tender, Normal inspection, Limited range of motion Lymphatics: Normal Respiratory: Diminished, Other (Less tight than yesterday, he is currently on nasal cannula oxygen with less rhonchi and rales once again.) Cardiovascular: Regular rate, Regular rate and rhythm, Normal S2, Murmurs GI: Normal bowel sounds, Soft, Non tender, No hepatospenomegaly Extremities/Musculoskeletal: Normal pulses, Swelling, DJD Skin: Warm,Dry and Intact, No rashes, No breakdown, Warmth Neurological: Normal speech, Cranial nerves 3-12 NL Lab/DI/Studies Reviewed: Laboratory Tests 07/21/16 07/21/16 06:18 06:38 pH 7.460 H pCO2 48.0 H pO2 64.0 L BUN 12 Creatinine 0.60 L - Assessment (1) Acute exacerbation of chronic obstructive airways disease Acute J44.1 - CHRONIC OBSTRUCTIVE PULMONARY DISEASE W (ACUTE) EXACERBATION Comment/Plan: Patient received IV steroids at high doses and nebulized bronchodilators. Improved with increased dose of IV steroids, will wean steroids down a bit today. (2) Acute bronchitis Acute J20.9 - ACUTE BRONCHITIS, UNSPECIFIED (3) Acute respiratory failure with hypoxia Acute J96.01 - ACUTE RESPIRATORY FAILURE WITH HYPOXIA Comment/Plan: Continue O2 nebs and pulmonary toilet. Monitor pulmonary status. Finally making some progress on maximal pulmonary therapy. (4) Dehydration Acute E86.0 - DEHYDRATION Comment/Plan: Gentle IV hydration we provided (5) GERD (gastroesophageal reflux disease) Acute K21.9 - GASTRO-ESOPHAGEAL REFLUX DISEASE WITHOUT ESOPHAGITIS Qualifiers: Esophagitis presence: without esophagitis Qualified Code(s): K21.9 - Gastro -esophageal reflux disease without esophagitis Comment/Plan: continue ppi. (6) HTN (hypertension) Chronic I10 - ESSENTIAL (PRIMARY) HYPERTENSION Qualifiers: Hypertension type: essential hypertension Qualified Code(s): I10 - Essential (primary) hypertension Comment/Plan: Stable on home meds (7) Tobacco abuse Chronic Z72.0 - TOBACCO USE Comment/Plan: Smoking cessation counseling provided the patient. He was clearly advised that if he continues to smoke he will become permanently handicap from lung perspective
[2016-07-21] MEDS: NS 1,000 ML IV SCH (17:40)
[2016-07-21] MEDS: ENOXAPARIN 40 MG/0.4 ML PFS SQ SCH (17:40)
[2016-07-21] MEDS: LEVOFLOXACIN 750 MG TAB PO SCH (17:40)
[2016-07-21] MEDS: TRAZODONE 50 MG TAB PO SCH (20:28)
[2016-07-21] MEDS: LORAZEPAM 2 MG/ML VIAL IV PRN (23:10)
[2016-07-22] MEDS: NS 1,000 ML IV SCH ×2 (00:18→14:07)
[2016-07-22] MEDS: REGULAR INSULIN 100 UNITS/ML - 3 ML VIAL SQ SCH ×4 (00:38→16:11)
[2016-07-22] MEDS: Albuterol/Ipratropium Neb 3 ML NEB NEB SCH ×4 (02:09→20:51)
[2016-07-22] MEDS: METHYLPREDNISOLONE 125 MG/2 ML VIAL IV SCH ×4 (02:51→22:01)
[2016-07-22] MEDS: PANTOPRAZOLE 40 MG TAB PO SCH (05:42)
[2016-07-22 07:20] LABS: BLOOD UREA NITROGEN 15 MG/DL (9-20); CALCIUM 8.7 MG/DL (8.4-10.2); CALCULATED OSMOLALITY 259 MOs/Kg (270-290); CHLORIDE 95 mEq/L (98-107); GLUCOSE 106 MG/DL (70-99); SODIUM LEVEL 134 mEq/L (137-146)
[2016-07-22] MEDS: BUDESONIDE 0.5 MG NEB NEB SCH ×2 (07:41→20:52)
[2016-07-22] MEDS: LISINOPRIL 20 MG TAB PO SCH (08:05)
[2016-07-22] MEDS: GUAIFENESIN 600 MG LA TAB PO SCH ×2 (08:06→21:59)
[2016-07-22] MEDS: DOXAZOSIN MESYLATE 1 MG TAB PO SCH (08:06)
--- NOTE | 2016-07-22 09:48 | PCM.PULM ---
Chief Complaint: Uneventful overnight Patient sitting at bedside on room air at rest. Reports that he gets out of breath with any movement and on exertions. Still has a cough with some sputum, has less wheezing today. Medication list and notes reviewed:yes - Physical Examination Vital Signs and I&O: Last Vital Signs Temp 98.1 F 07/22/16 05:35 Pulse 91 07/22/16 05:35 Resp 18 07/22/16 05:35 BP 162/78 07/22/16 05:35 Pulse Ox 90 L 07/22/16 07:42 Oxygen Pulse Oxygen Saturation 90 O2 Device Room Air Oxygen Flow Rate 1 Fraction of Inspired Oxygen ( 35 FIO2) Intake & Output 07/19/16 07/20/16 07/21/16 07/22/16 23:59 23:59 23:59 23:59 Intake Total 2321 1802 1677 216 Output Total 1231 6521 5628 5270 Balance -9631 -3073 -1698 -5164 Patient's weight 57.833 kg 58.559 kg 58.831 kg 59.693 kg General: Alert, Oriented x3, No acute distress Respiratory: Diminished (at bases), Wheezes (mild/ improving) Cardiovascular: Regular rate, Regular rate and rhythm, Normal S1, No Gallops, Rubs/Murmurs, Normal S2 GI: Normal bowel sounds, Soft, Non tender, No masses Extremities/Musculoskeletal: Normal pulses Skin: Warm,Dry and Intact, No rashes, No breakdown, No significant lesion Neurological: Normal Steady Gait, Normal speech, Strength at 5/5 X4 ext, Normal tone, Cranial nerves 3-12 NL Psych/Mental Status: Normal Affect Result Diagrams: 07/15/16 15:15 07/22/16 06:37 Labs (last 24 hours): Laboratory Results - last 24 hr 07/22/16 07/22/16 05:39 06:37 Sodium 134 L Potassium 4.6 Chloride 95 L Carbon Dioxide 35 H Anion Gap 9 BUN 15 Creatinine 0.60 L Estimated GFR (MDRD) > 60 Glucose 106 H POC Capillary Glucose 105 H Calculated Osmolality 259 L Calcium 8.7 Lab/DI/Studies Reviewed: Medications: Pantoprazole Sodium (Protonix) 40 mg PO 0600 [facility] Stop: 07/29/16 16:59 Last Admin: 07/19/16 05:13 Dose: 40 mg Doxazosin Mesylate (Cardura) 2 mg PO DAILY [facility] Stop: 08/01/16 08:59 Last Admin: 07/20/16 08:28 Dose: 2 mg Acetaminophen (Tylenol Suppository) 650 mg HI Q6H PRN; Protocol PRN Reason: Mild Pain or Fever above 100.4 Stop: 07/29/16 16:59 Acetaminophen (Tylenol Tablet) 650 mg PO Q6H PRN; Protocol PRN Reason: Mild Pain or Fever above 100.4 Stop: 07/29/16 16:59 Acetylcysteine (Mucomyst) 4 ml NEB RTBID [facility] Stop: 07/31/16 16:59 Last Admin: 07/19/16 08:04 Dose: 4 ml Albuterol/Ipratropium (Duoneb) 3 ml NEB Q2H PRN PRN Reason: Wheezing Stop: 07/29/16 16:59 Aspirin (Ecotrin) 81 mg PO DAILYWM [facility] Stop: 07/29/16 16:59 Last Admin: 07/19/16 08:27 Dose: 81 mg Benzonatate (Tessalon) 100 mg PO TID PRN PRN Reason: Cough - First Option Stop: 07/29/16 16:59 Last Admin: 07/19/16 05:13 Dose: 100 mg Budesonide (Pulmicort) 0.5 mg NEB RTBID [facility] Stop: 07/29/16 16:59 Last Admin: 07/19/16 08:13 Dose: 0.5 mg Docusate Sodium (Colace) 100 mg PO BID PRN PRN Reason: Stool Softener Stop: 07/29/16 16:59 Doxazosin Mesylate (Cardura) 2 mg PO DAILY [facility] Stop: 08/01/16 08:59 Last Admin: 07/19/16 08:27 Dose: 2 mg Enoxaparin Sodium (Lovenox) 40 mg SQ Q24H [facility] Stop: 07/29/16 17:59 Last Admin: 07/18/16 16:25 Dose: 40 mg Guaifenesin (Mucinex) 1,200 mg PO Q12 [facility] Stop: 07/29/16 16:59 Last Admin: 07/19/16 08:26 Dose: 1,200 mg Insulin Human Regular (Humulin R) 0 units SQ Q6 [facility] PRN Reason: Protocol Stop: 07/29/16 16:59 Last Admin: 07/19/16 06:04 Dose: Not Given Lisinopril (Zestril) 30 mg PO DAILY [facility] Stop: 07/30/16 08:59 Last Admin: 07/19/16 08:26 Dose: 30 mg Lorazepam (Ativan) 0.5 mg IV Q6H PRN PRN Reason: Anxiety or Agitation Stop: 07/31/16 16:59 Last Admin: 07/19/16 08:24 Dose: 0.5 mg Ondansetron HCl (Zofran) 4 mg IV Q6H PRN PRN Reason: Nausea/Vomiting - First Option Stop: 07/29/16 16:59 Promethazine HCl (Phenergan) 12.5 mg IV Q6H PRN; Protocol PRN Reason: Nausea/Vomiting - Alternative Stop: 07/29/16 16:59 Simethicone (Mylicon, Mylanta Gas) 80 mg PO Q3H PRN PRN Reason: Intestinal Gas Stop: 07/29/16 16:59 Levofloxacin (Levaquin) 750 mg PO Q24H [facility] Stop: 07/22/16 23:45 Last Admin: 07/21/16 17:40 Dose: 750 mg Methylprednisolone Sodium Succinate (Solu-Medrol) 60 mg IV Q6H [facility] Stop: 07/29/16 14:59 Last Admin: 07/22/16 08:07 Dose: 60 mg Sodium Chloride (Normal Saline) 1,000 mls @ 40 mls/hr IV Q24H [facility] Stop: 07/29/16 16:59 Last Admin: 07/22/16 00:18 Dose: 40 mls/hr - Assessment/Plan (1) Acute exacerbation of chronic obstructive airways disease Acute J44.1 - CHRONIC OBSTRUCTIVE PULMONARY DISEASE W (ACUTE) EXACERBATION Comment/Plan: Patient has been improving however the progress is slow currently patient is feeling better and is on room air with minimal wheezing I would continue the current supportive care on this patient would attempt to cut down the steroids starting tomorrow continue BiPAP nebulizers oxygen steroids antibiotics GI and DVT prophylaxis and other care long-term prognosis is guarded (2) Acute respiratory failure with hypoxia Acute J96.01 - ACUTE RESPIRATORY FAILURE WITH HYPOXIA Comment/Plan: Improving slowly. Would continue oxygen and BiPAP prn (3) Pneumonia Acute J18.9 - PNEUMONIA, UNSPECIFIED ORGANISM P A L L Comment/Plan: Would continue IV antibiotics (4) Tobacco abuse Chronic Z72.0 - TOBACCO USE Comment/Plan: Patient was told in no uncertain terms to quit smoking he agrees and understands
--- NOTE | 2016-07-22 13:21 | GENMEDPROG ---
Chief Complaint: COPD exacerbation Subjective Note: He is much improved, feels like he may be ready for discharge from the hospital today. We have weaned him off of oxygen to room air this morning. Currently: Reports: Wheezing, HUMMEL, Tobacco Use/Hx DVT Prophylaxis: Yes - Physical Examination Vital Signs and I&O: Last Vital Signs Temp 98.1 F 07/22/16 05:35 Pulse 109 07/22/16 12:24 Resp 20 07/22/16 12:24 BP 162/78 07/22/16 05:35 Pulse Ox 89 L 07/22/16 12:24 Oxygen Pulse Oxygen Saturation 89 O2 Device Room Air Oxygen Flow Rate 1 Fraction of Inspired Oxygen ( 35 FIO2) Intake & Output 07/20/16 07/21/16 07/22/16 07/23/16 06:59 06:59 06:59 06:59 Intake Total 2291 1758 1606 240 Output Total 4777 4000 3775 1250 Balance -2484 -2242 -2169 -1010 Patient's weight 58.559 kg 58.831 kg 59.693 kg General: Alert, Oriented x3, Cooperative, Mild distress HEENT: Normal, PERRLA, EOMI, Anicteric Sclera Neck: Non-tender, Normal inspection, Limited range of motion Lymphatics: Normal Respiratory: Diminished, Other (Less tight than yesterday, he is currently on nasal cannula oxygen with less rhonchi and rales once again.) Cardiovascular: Regular rate, Regular rate and rhythm, Normal S2, Murmurs GI: Normal bowel sounds, Soft, Non tender, No hepatospenomegaly Extremities/Musculoskeletal: Normal pulses, Swelling, DJD Skin: Warm,Dry and Intact, No rashes, No breakdown, Warmth Neurological: Normal speech, Cranial nerves 3-12 NL Overall his pulmonary exam is much better. He is breathing comfortably moving about the room without any distress. Lab/DI/Studies Reviewed: Laboratory Tests 07/22/16 06:37 Potassium 4.6 BUN 15 Creatinine 0.60 L - Assessment (1) Acute exacerbation of chronic obstructive airways disease Acute J44.1 - CHRONIC OBSTRUCTIVE PULMONARY DISEASE W (ACUTE) EXACERBATION Comment/Plan: Patient received IV steroids at high doses and nebulized bronchodilators. Improved with increased dose of IV steroids, will wean steroids down a bit today. (2) Acute bronchitis Acute J20.9 - ACUTE BRONCHITIS, UNSPECIFIED (3) Acute respiratory failure with hypoxia Acute J96.01 - ACUTE RESPIRATORY FAILURE WITH HYPOXIA Comment/Plan: Continue O2 nebs and pulmonary toilet. Monitor pulmonary status. Finally making some progress on maximal pulmonary therapy. (4) Dehydration Acute E86.0 - DEHYDRATION Comment/Plan: Gentle IV hydration we provided (5) GERD (gastroesophageal reflux disease) Acute K21.9 - GASTRO-ESOPHAGEAL REFLUX DISEASE WITHOUT ESOPHAGITIS Qualifiers: Esophagitis presence: without esophagitis Qualified Code(s): K21.9 - Gastro -esophageal reflux disease without esophagitis Comment/Plan: continue ppi. (6) HTN (hypertension) Chronic I10 - ESSENTIAL (PRIMARY) HYPERTENSION Qualifiers: Hypertension type: essential hypertension Qualified Code(s): I10 - Essential (primary) hypertension Comment/Plan: Stable on home meds (7) Tobacco abuse Chronic Z72.0 - TOBACCO USE Comment/Plan: Smoking cessation counseling provided the patient. He was clearly advised that if he continues to smoke he will become permanently handicap from lung perspective - Plan He was weaned completely off of oxygen, tolerating room air with oxygen saturations dropping to 80% with ambulation. However, he was getting quite dyspneic according to nursing staff. As such, decision was made to continue present care today and plan on discharging the patient home in the morning.
[2016-07-22] MEDS: LEVOFLOXACIN 750 MG TAB PO SCH (15:19)
[2016-07-22] MEDS: ENOXAPARIN 40 MG/0.4 ML PFS SQ SCH (16:41)
[2016-07-22] MEDS: TRAZODONE 50 MG TAB PO SCH (21:59)
[2016-07-22] MEDS ORDERED: NACL 0.65% NASAL 45 ML BOTTLE NAS PRN (22:50)
[2016-07-22] MEDS ORDERED: FLUTICASONE PROPIONATE 16 GM BOT NAS SCH (23:00)
[2016-07-22] MEDS ORDERED: NACL 0.65% NASAL 45 ML BOTTLE NAS SCH (23:00)
[2016-07-22] MEDS ORDERED: TRAZODONE 50 MG TAB PO SCH (23:00)
[2016-07-23] MEDS: REGULAR INSULIN 100 UNITS/ML - 3 ML VIAL SQ SCH ×4 (01:27→16:39)
[2016-07-23] MEDS: Albuterol/Ipratropium Neb 3 ML NEB NEB SCH ×4 (01:58→20:47)
[2016-07-23] MEDS: NS 1,000 ML IV SCH ×2 (04:00→14:56)
[2016-07-23] MEDS: METHYLPREDNISOLONE 125 MG/2 ML VIAL IV SCH ×4 (04:00→21:05)
[2016-07-23] MEDS: PANTOPRAZOLE 40 MG TAB PO SCH ×2 (04:14→18:22)
[2016-07-23 07:46] LABS: BLOOD UREA NITROGEN 14 MG/DL (9-20); CALCIUM 8.3 MG/DL (8.4-10.2); CALCULATED OSMOLALITY 260 MOs/Kg (270-290); CHLORIDE 97 mEq/L (98-107); GLUCOSE 113 MG/DL (70-99); SODIUM LEVEL 134 mEq/L (137-146)
[2016-07-23] MEDS: BUDESONIDE 0.5 MG NEB NEB SCH ×2 (07:59→20:48)
[2016-07-23] MEDS: LISINOPRIL 20 MG TAB PO SCH (08:40)
[2016-07-23] MEDS: DOXAZOSIN MESYLATE 1 MG TAB PO SCH (08:40)
[2016-07-23] MEDS: GUAIFENESIN 600 MG LA TAB PO SCH ×2 (08:41→20:56)
--- NOTE | 2016-07-23 10:21 | PCM.PULM ---
Chief Complaint: Patient breathing is improved. No wheezing and has a c/o shortness of breath on exertions. On room air. Current medication list reviewed:yes Notes reviewed:yes - Physical Examination Vital Signs and I&O: Last Vital Signs Temp 97.8 F 07/23/16 05:15 Pulse 84 07/23/16 06:20 Resp 18 07/23/16 06:20 BP 158/87 07/23/16 06:20 Pulse Ox 93 07/23/16 07:51 Oxygen Pulse Oxygen Saturation 93 O2 Device Room Air Oxygen Flow Rate 1 Fraction of Inspired Oxygen ( 35 FIO2) Intake & Output 07/20/16 07/21/16 07/22/16 07/23/16 23:59 23:59 23:59 23:59 Intake Total 1802 1677 1372 480 Output Total 8907 3823 3450 525 Balance -3073 -1698 -2078 -45 Patient's weight 58.559 kg 58.831 kg 59.693 kg 59.591 kg General: Alert, Oriented x3, No acute distress Respiratory: Normal - CTA, Diminished (at bases) Cardiovascular: Regular rate, Regular rate and rhythm, Normal S1, No Gallops, Rubs/Murmurs, Normal S2 GI: Normal bowel sounds, Soft, Non tender, No hepatospenomegaly, No masses Extremities/Musculoskeletal: Normal pulses Skin: Warm,Dry and Intact, No rashes, No breakdown, No significant lesion Neurological: Normal Steady Gait, Normal speech, Strength at 5/5 X4 ext, Cranial nerves 3-12 NL Psych/Mental Status: Appropriate Result Diagrams: 07/15/16 15:15 07/23/16 06:52 Labs (last 24 hours): Laboratory Results - last 24 hr 07/23/16 07/23/16 05:19 06:52 Sodium 134 L Potassium 4.3 Chloride 97 L Carbon Dioxide 32 Anion Gap 9 BUN 14 Creatinine 0.60 L Estimated GFR (MDRD) > 60 Glucose 113 H POC Capillary Glucose 135 H Calculated Osmolality 260 L Calcium 8.3 L Lab/DI/Studies Reviewed: Medications: Pantoprazole Sodium (Protonix) 40 mg PO 0600 [facility] Stop: 07/29/16 16:59 Last Admin: 07/19/16 05:13 Dose: 40 mg Methylprednisolone Sodium Succinate (Solu-Medrol) 60 mg IV Q6H [facility] Stop: 07/29/16 14:59 Last Admin: 07/22/16 08:07 Dose: 60 mg Acetaminophen (Tylenol Suppository) 650 mg SD Q6H PRN; Protocol PRN Reason: Mild Pain or Fever above 100.4 Stop: 07/29/16 16:59 Acetaminophen (Tylenol Tablet) 650 mg PO Q6H PRN; Protocol PRN Reason: Mild Pain or Fever above 100.4 Stop: 07/29/16 16:59 Albuterol/Ipratropium (Duoneb) 3 ml NEB Q2H PRN PRN Reason: Wheezing Stop: 07/29/16 16:59 Aspirin (Ecotrin) 81 mg PO DAILYWM [facility] Stop: 07/29/16 16:59 Last Admin: 07/19/16 08:27 Dose: 81 mg Benzonatate (Tessalon) 100 mg PO TID PRN PRN Reason: Cough - First Option Stop: 07/29/16 16:59 Last Admin: 07/19/16 05:13 Dose: 100 mg Budesonide (Pulmicort) 0.5 mg NEB RTBID [facility] Stop: 07/29/16 16:59 Last Admin: 07/19/16 08:13 Dose: 0.5 mg Docusate Sodium (Colace) 100 mg PO BID PRN PRN Reason: Stool Softener Stop: 07/29/16 16:59 Doxazosin Mesylate (Cardura) 2 mg PO DAILY [facility] Stop: 08/01/16 08:59 Last Admin: 07/19/16 08:27 Dose: 2 mg Enoxaparin Sodium (Lovenox) 40 mg SQ Q24H [facility] Stop: 07/29/16 17:59 Last Admin: 07/18/16 16:25 Dose: 40 mg Guaifenesin (Mucinex) 1,200 mg PO Q12 [facility] Stop: 07/29/16 16:59 Last Admin: 07/19/16 08:26 Dose: 1,200 mg Guaifenesin/Dextromethorphan (Robitussin Dm) 10 ml PO Q6H PRN PRN Reason: Cough - Alternative Stop: 07/29/16 16:59 Insulin Human Regular (Humulin R) 0 units SQ Q6 [facility] PRN Reason: Protocol Stop: 07/29/16 16:59 Last Admin: 07/19/16 06:04 Dose: Not Given Lisinopril (Zestril) 30 mg PO DAILY [facility] Stop: 07/30/16 08:59 Last Admin: 07/19/16 08:26 Dose: 30 mg Lorazepam (Ativan) 0.5 mg IV Q6H PRN PRN Reason: Anxiety or Agitation Stop: 07/31/16 16:59 Last Admin: 07/19/16 08:24 Dose: 0.5 mg Ondansetron HCl (Zofran) 4 mg IV Q6H PRN PRN Reason: Nausea/Vomiting - First Option Stop: 07/29/16 16:59 Promethazine HCl (Phenergan) 12.5 mg IV Q6H PRN; Protocol PRN Reason: Nausea/Vomiting - Alternative Stop: 07/29/16 16:59 Simethicone (Mylicon, Mylanta Gas) 80 mg PO Q3H PRN PRN Reason: Intestinal Gas Stop: 07/29/16 16:59 Trazodone HCl (Desyrel) 50 mg PO QHS [facility] Stop: 07/29/16 21:59 Last Admin: 07/18/16 21:14 Dose: 50 mg - Assessment/Plan (1) Acute exacerbation of chronic obstructive airways disease Acute J44.1 - CHRONIC OBSTRUCTIVE PULMONARY DISEASE W (ACUTE) EXACERBATION Comment/Plan: Doing well has been and not requiring oxygen and minimal wheezing I would therefore cut down the Solu-Medrol to 40 mg IV q.8 hours continue DVT and GI prophylaxis nebulizers as needed. Patient should be on BiPAP while he is sleeping I am hoping that he would be able to go home within a day or 2 (2) Acute respiratory failure with hypoxia Acute J96.01 - ACUTE RESPIRATORY FAILURE WITH HYPOXIA Comment/Plan: Continue oxygen and BiPAP as needed patient has been improving slowly (3) Pneumonia Acute J18.9 - PNEUMONIA, UNSPECIFIED ORGANISM P A L L Comment/Plan: Would continue IV antibiotics for now (4) Tobacco abuse Chronic Z72.0 - TOBACCO USE Comment/Plan: Patient was told in no uncertain terms to quit smoking he agrees and understands
--- NOTE | 2016-07-23 16:43 | GENMEDPROG ---
Chief Complaint: still sob coughing and short of breath, he finished levaquin and he is not much better Notes Reviewed: Yes Events from last night noted and discussed with Clinical Staff Current Medication List: Reviewed Currently: Reports: Wheezing, HUMMEL, Tobacco Use/Hx DVT Prophylaxis: Yes - Physical Examination Vital Signs and I&O: Last Vital Signs Temp 97.8 F 07/23/16 14:00 Pulse 106 07/23/16 14:00 Resp 18 07/23/16 14:00 BP 140/73 07/23/16 14:00 Pulse Ox 93 07/23/16 14:00 Oxygen Pulse Oxygen Saturation 93 O2 Device Room Air Oxygen Flow Rate 1 Fraction of Inspired Oxygen ( 35 FIO2) Intake & Output 07/20/16 07/21/16 07/22/16 07/23/16 23:59 23:59 23:59 23:59 Intake Total 1802 1677 1372 680 Output Total 4847 5906 3450 525 Balance -9983 -4163 -7712 155 Patient's weight 58.559 kg 58.831 kg 59.693 kg 59.591 kg General: Alert, Oriented x3, Cooperative, Mild distress HEENT: Normal, PERRLA, EOMI, Anicteric Sclera Neck: Non-tender, Normal inspection, Limited range of motion Lymphatics: Normal Respiratory: Diminished, Other (Less tight than yesterday, he is currently on nasal cannula oxygen with less rhonchi and rales once again.) Cardiovascular: Regular rate, Regular rate and rhythm, Normal S2, Murmurs GI: Normal bowel sounds, Soft, Non tender, No hepatospenomegaly Extremities/Musculoskeletal: Normal pulses, Swelling, DJD Skin: Warm,Dry and Intact, No rashes, No breakdown, Warmth Neurological: Normal speech, Cranial nerves 3-12 NL Lab/DI/Studies Reviewed: 07/15/16 15:15 07/23/16 06:52 Laboratory Results - last 24 hr 07/22/16 07/23/16 07/23/16 23:24 05:19 06:52 Sodium 134 L Potassium 4.3 Chloride 97 L Carbon Dioxide 32 Anion Gap 9 BUN 14 Creatinine 0.60 L Estimated GFR (MDRD) > 60 Glucose 113 H POC Capillary Glucose 105 H 135 H Calculated Osmolality 260 L Calcium 8.3 L 07/23/16 07/23/16 11:06 16:26 Sodium Potassium Chloride Carbon Dioxide Anion Gap BUN Creatinine Estimated GFR (MDRD) Glucose POC Capillary Glucose 121 H 109 H Calculated Osmolality Calcium - Assessment (1) Acute exacerbation of chronic obstructive airways disease Acute J44.1 - CHRONIC OBSTRUCTIVE PULMONARY DISEASE W (ACUTE) EXACERBATION Comment/Plan: Patient received IV steroids at high doses and nebulized bronchodilators. Improved with increased dose of IV steroids, will wean steroids down a bit today. (2) Acute respiratory failure with hypoxia Resolved J96.01 - ACUTE RESPIRATORY FAILURE WITH HYPOXIA Comment/Plan: Continue O2 nebs and pulmonary toilet. Monitor pulmonary status. Finally making some progress on maximal pulmonary therapy. (3) HTN (hypertension) Chronic I10 - ESSENTIAL (PRIMARY) HYPERTENSION Qualifiers: Hypertension type: essential hypertension Qualified Code(s): I10 - Essential (primary) hypertension Comment/Plan: Stable on home meds (4) GERD (gastroesophageal reflux disease) Acute K21.9 - GASTRO-ESOPHAGEAL REFLUX DISEASE WITHOUT ESOPHAGITIS Qualifiers: Esophagitis presence: without esophagitis Qualified Code(s): K21.9 - Gastro -esophageal reflux disease without esophagitis Comment/Plan: continue ppi. (5) Tobacco abuse Chronic Z72.0 - TOBACCO USE Comment/Plan: Smoking cessation counseling provided the patient & discussion undertaken. Wellbutrin. Case Care Discussed with: Patient, Nursing Staff, Resource Management Education/Counseling Given To: Patient Education/Counseling Given Regarding: Diagnosis, Treatment Total Time: 36 min plus 10 min smoking cessation discussion Critical Care: No Code: 73590 (12+) (407)
[2016-07-23] MEDS ORDERED: PROBIOTIC BLEND TAB PO SCH (18:00)
[2016-07-23] MEDS ORDERED: CEFTRIAXONE 1 GM in D5W 100 ML IV SCH (18:00)
[2016-07-23] MEDS: ENOXAPARIN 40 MG/0.4 ML PFS SQ SCH (18:22)
[2016-07-23] MEDS ORDERED: AZITHROMYCIN 500 MG in D5W 250 ML IV SCH (20:00)
[2016-07-23] MEDS: FLUTICASONE PROPIONATE 16 GM BOT NAS SCH ×2 (20:59)
[2016-07-23] MEDS ORDERED: TRAZODONE 100 MG TAB PO SCH (21:00)
[2016-07-23] MEDS ORDERED: MONTELUKAST SODIUM 10 MG TAB PO SCH (21:00)
[2016-07-24] MEDS: REGULAR INSULIN 100 UNITS/ML - 3 ML VIAL SQ SCH ×2 (00:45→06:25)
[2016-07-24] MEDS: Albuterol/Ipratropium Neb 3 ML NEB NEB SCH ×2 (02:39→07:31)
[2016-07-24] MEDS: PANTOPRAZOLE 40 MG TAB PO SCH (05:17)
[2016-07-24] MEDS: METHYLPREDNISOLONE 125 MG/2 ML VIAL IV SCH (05:17)
[2016-07-24 05:45] VITALS: TEMP 98.1
[2016-07-24 07:21] LABS: MPV 7.7 fL (7.4-10.4)
[2016-07-24 07:33] LABS: BLOOD UREA NITROGEN 15 MG/DL (9-20); CALCIUM 8.3 MG/DL (8.4-10.2); CALCULATED OSMOLALITY 262 MOs/Kg (270-290); CHLORIDE 97 mEq/L (98-107); GLUCOSE 124 MG/DL (70-99); SODIUM LEVEL 135 mEq/L (137-146)
[2016-07-24] MEDS: BUDESONIDE 0.5 MG NEB NEB SCH (07:33)
[2016-07-24 08:09] LABS: SEG NEUTROPHIL 82 % (45-76)
--- NOTE | 2016-07-24 08:32 | PCM.PULM ---
Chief Complaint: Uneventful overnight Patient breathing has improved. Not much of cough or wheezing. Ambulating on room air Medication list and notes reviewed:Yes - Physical Examination Vital Signs and I&O: Last Vital Signs Temp 98.1 F 07/24/16 05:44 Pulse 95 07/24/16 05:44 Resp 18 07/24/16 05:44 BP 158/79 07/24/16 05:44 Pulse Ox 94 07/24/16 05:14 Oxygen Pulse Oxygen Saturation 94 O2 Device Room Air Oxygen Flow Rate 1 Fraction of Inspired Oxygen ( 35 FIO2) Intake & Output 07/21/16 07/22/16 07/23/16 07/24/16 23:59 23:59 23:59 23:59 Intake Total 1671 7415 1784 737 Output Total 0662 4360 975 Balance -6635 -1871 162 737 Patient's weight 58.831 kg 59.693 kg 59.591 kg General: Alert, Oriented x3, Cooperative, No acute distress Respiratory: Normal - CTA Cardiovascular: Regular rate, Regular rate and rhythm, Normal S1, No Gallops, Rubs/Murmurs, Normal S2 GI: Normal bowel sounds, Soft, Non tender, No masses Extremities/Musculoskeletal: Normal pulses Skin: Warm,Dry and Intact, No rashes, No breakdown Neurological: Normal Steady Gait, Normal speech, Strength at 5/5 X4 ext, Normal tone, Cranial nerves 3-12 NL Psych/Mental Status: Normal Affect Result Diagrams: 07/24/16 06:40 07/24/16 06:40 Labs (last 24 hours): Laboratory Results - last 24 hr 07/23/16 07/23/16 07/24/16 11:06 16:26 06:40 WBC RBC Hgb Hct MCV MCH MCHC RDW Plt Count MPV Neut % (Auto) Lymph % (Auto) [place] % (Auto) Eos % (Auto) Baso % (Auto) Absolute Neuts (auto) Absolute Lymphs (auto) Seg Neuts % (Manual) Band Neutrophils % Lymphocytes % (Manual) Monocytes % (Manual) Absolute Neutrophils Absolute Lymphocytes Platelet Estimate RBC Morphology Sodium 135 L Potassium 4.0 Chloride 97 L Carbon Dioxide 30 Anion Gap 12 BUN 15 Creatinine 0.60 L Estimated GFR (MDRD) > 60 Glucose 124 H POC Capillary Glucose 121 H 109 H Calculated Osmolality 262 L Calcium 8.3 L 07/24/16 06:40 WBC 11.2 H RBC 4.30 L Hgb 14.2 Hct 40.3 L MCV 94 MCH 32.9 H MCHC 35.1 RDW 12.9 Plt Count 256 MPV 7.7 Neut % (Auto) Cancelled Lymph % (Auto) Cancelled [place] % (Auto) Cancelled Eos % (Auto) Cancelled Baso % (Auto) Cancelled Absolute Neuts (auto) Cancelled Absolute Lymphs (auto) Cancelled Seg Neuts % (Manual) 82 H Band Neutrophils % 3 Lymphocytes % (Manual) 7 L Monocytes % (Manual) 8 Absolute Neutrophils 9.52 H Absolute Lymphocytes 0.78 Platelet Estimate Norm RBC Morphology Norm Sodium Potassium Chloride Carbon Dioxide Anion Gap BUN Creatinine Estimated GFR (MDRD) Glucose POC Capillary Glucose Calculated Osmolality Calcium Lab/DI/Studies Reviewed: Medications: Pantoprazole Sodium (Protonix) 40 mg PO 0600 [facility] Stop: 07/29/16 16:59 Last Admin: 07/19/16 05:13 Dose: 40 mg Doxazosin Mesylate (Cardura) 2 mg PO DAILY [facility] Stop: 08/01/16 08:59 Last Admin: 07/20/16 08:28 Dose: 2 mg Levofloxacin (Levaquin) 750 mg PO Q24H [facility] Stop: 07/22/16 16:59 Last Admin: 07/19/16 15:56 Dose: 750 mg Acetaminophen (Tylenol Suppository) 650 mg [place] Q6H PRN; Protocol PRN Reason: Mild Pain or Fever above 100.4 Stop: 07/29/16 16:59 Acetaminophen (Tylenol Tablet) 650 mg PO Q6H PRN; Protocol PRN Reason: Mild Pain or Fever above 100.4 Stop: 07/29/16 16:59 Acetylcysteine (Mucomyst) 4 ml NEB RTBID [facility] Stop: 07/31/16 16:59 Last Admin: 07/19/16 08:04 Dose: 4 ml Albuterol/Ipratropium (Duoneb) 3 ml NEB Q2H PRN PRN Reason: Wheezing Stop: 07/29/16 16:59 Aspirin (Ecotrin) 81 mg PO DAILYWM [facility] Stop: 07/29/16 16:59 Last Admin: 07/19/16 08:27 Dose: 81 mg Benzonatate (Tessalon) 100 mg PO TID PRN PRN Reason: Cough - First Option Stop: 07/29/16 16:59 Last Admin: 07/19/16 05:13 Dose: 100 mg Docusate Sodium (Colace) 100 mg PO BID PRN PRN Reason: Stool Softener Stop: 07/29/16 16:59 Doxazosin Mesylate (Cardura) 2 mg PO DAILY [facility] Stop: 08/01/16 08:59 Last Admin: 07/19/16 08:27 Dose: 2 mg Enoxaparin Sodium (Lovenox) 40 mg SQ Q24H [facility] Stop: 07/29/16 17:59 Last Admin: 07/18/16 16:25 Dose: 40 mg Guaifenesin (Mucinex) 1,200 mg PO Q12 [facility] Stop: 07/29/16 16:59 Last Admin: 07/19/16 08:26 Dose: 1,200 mg Guaifenesin/Dextromethorphan (Robitussin Dm) 10 ml PO Q6H PRN PRN Reason: Cough - Alternative Stop: 07/29/16 16:59 Insulin Human Regular (Humulin R) 0 units SQ Q6 [facility] PRN Reason: Protocol Stop: 07/29/16 16:59 Last Admin: 07/19/16 06:04 Dose: Not Given Lisinopril (Zestril) 30 mg PO DAILY [facility] Stop: 07/30/16 08:59 Last Admin: 07/19/16 08:26 Dose: 30 mg Ondansetron HCl (Zofran) 4 mg IV Q6H PRN PRN Reason: Nausea/Vomiting - First Option Stop: 07/29/16 16:59 Promethazine HCl (Phenergan) 12.5 mg IV Q6H PRN; Protocol PRN Reason: Nausea/Vomiting - Alternative Stop: 07/29/16 16:59 Simethicone (Mylicon, Mylanta Gas) 80 mg PO Q3H PRN PRN Reason: Intestinal Gas Stop: 07/29/16 16:59 Trazodone HCl (Desyrel) 50 mg PO QHS [facility] Stop: 07/29/16 21:59 Last Admin: 07/18/16 21:14 Dose: 50 mg Budesonide (Pulmicort) 0.5 mg NEB RTBID [facility] Stop: 07/29/16 16:59 Last Admin: 07/23/16 07:59 Dose: 0.5 mg Sodium Chloride (Normal Saline) 1,000 mls @ 40 mls/hr IV Q24H [facility] Stop: 07/29/16 16:59 Last Admin: 07/23/16 14:56 Dose: Not Given Methylprednisolone Sodium Succinate (Solu-Medrol) 60 mg IV Q8H [facility] Stop: 08/06/16 22:59 Last Admin: 07/24/16 05:17 Dose: 60 mg Lorazepam (Ativan) 0.5 mg IV Q6H PRN PRN Reason: Anxiety or Agitation Stop: 07/31/16 16:59 Last Admin: 07/21/16 23:10 Dose: 0.5 mg Trazodone HCl (Desyrel) 100 mg PO HS [facility] Stop: 08/06/16 20:59 Last Admin: 07/23/16 20:58 Dose: 100 mg - Assessment/Plan (1) Acute exacerbation of chronic obstructive airways disease Acute J44.1 - CHRONIC OBSTRUCTIVE PULMONARY DISEASE W (ACUTE) EXACERBATION Comment/Plan: Patient has been improving slowly I think he has be able to go home soon I would continue the current supportive care including oxygen nebulizers continue steroids in a tapering dose continues BiPAP as the patient sleep and would follow the patient as an outpatient within a week or so (2) Pneumonia Acute J18.9 - PNEUMONIA, UNSPECIFIED ORGANISM P A L L Comment/Plan: Would continue antibiotics to complete a total of 10 days (3) Tobacco abuse Chronic Z72.0 - TOBACCO USE Comment/Plan: Patient was told in no uncertain terms to quit smoking he agrees and understands
[2016-07-24] MEDS ORDERED: TIOTROPIUM BROMIDE INH SCH (09:00)
[2016-07-24] MEDS ORDERED: BuPROPion 150 MG SR TAB PO SCH (09:00)
--- NOTE | 2016-07-24 09:17 | PCM.DCS92 ---
[id number] PULMONARY DISEASE W (ACUTE) EXACERBATION Present on Admission: Yes Comment: Patient received IV steroids at high doses and nebulized bronchodilators. Improved with increased dose of IV steroids now switching to p.o. and ready for discharge. (2) Acute respiratory failure with hypoxia Resolved J96.01 - ACUTE RESPIRATORY FAILURE WITH HYPOXIA Present on Admission: Yes Comment: Continue O2 nebs and pulmonary toilet. Monitor pulmonary status. Finally making some progress on maximal pulmonary therapy. (3) HTN (hypertension) Chronic I10 - ESSENTIAL (PRIMARY) HYPERTENSION Present on Admission: Yes essential hypertension I10 - Essential (primary) hypertension Comment: Stable on home meds (4) GERD (gastroesophageal reflux disease) Acute K21.9 - GASTRO-ESOPHAGEAL REFLUX DISEASE WITHOUT ESOPHAGITIS Present on Admission: Yes without esophagitis K21.9 - Gastro-esophageal reflux disease without esophagitis Comment: continue ppi. (5) Tobacco abuse Chronic Z72.0 - TOBACCO USE Present on Admission: Yes Comment: Smoking cessation counseling provided the patient & discussion undertaken. Wellbutrin. Discharge Disposition: Home Discharge Condition: Improved Cognitive Discharge Status: Unimpaired Fuctional Discharge Status: Independent Physician Follow up/Referrals: Yuriy Warner MD [Staff Physician] - 07/27/16 3:30 pm Home Medications / New Prescriptions: New Aspirin (Enteric Coated) [Halfprin] 81 mg PO DAILYWM #30 tablet Azithromycin [Zithromax Tri-Eliu] 500 mg PO DAILY #3 tablet BuPROPion (BID formulation) [Wellbutrin-Sr] 150 mg PO DAILY #30 tab.sr.12h Cefdinir [Omnicef] 300 mg PO BID #10 cap Montelukast Sodium [Singulair] 10 mg PO HS #30 tablet Probiotic Blend [Mee Q] 1 tab PO BIDLS #30 tablet Trazodone HCl [Desyrel] 100 mg PO HS #30 tablet Nicotine [Nicotine Patch] 1 each TD DAILY #30 patch.td24 Continue Tiotropium [place] [Spiriva Respimat] 2 puff INH DAILY Lisinopril [Prinivil] 30 mg PO DAILY Omeprazole 40 mg PO DAILY Albuterol Sulfate [Proventil Hfa] 1 puff INH Q6H PRN PRN Reason: Shortness Of Breath Fluticasone/Vilanterol [Breo Ellipta 200-25 Mcg INH] 1 puff INH DAILY Trazodone HCl [Desyrel] 50 mg PO QHS Doxazosin Mesylate 2 mg PO DAILY Prednisone [Sterapred Ds] 10 mg PO DIR #21 pack Discharge Home Medication List Lisinopril [Prinivil] 30 mg PO DAILY 03/28/15 [History Confirmed 07/22/16 Last Taken 07/22/16 08:05] Tiotropium [place] [Spiriva Respimat] 2 puff INH DAILY 03/28/15 [History Confirmed 07/15/16 Last Taken 07/15/16] Albuterol Sulfate [Proventil Hfa] 1 puff INH Q6H PRN 07/15/16 [History Confirmed 07/22/16 Last Taken 07/22/16 07:32] Doxazosin Mesylate 2 mg PO DAILY 07/15/16 [History Confirmed 07/16/16 Last Taken 1 Month Ago] Fluticasone/Vilanterol [Breo Ellipta 200-25 Mcg INH] 1 puff INH DAILY 07/15/16 [ History Confirmed 07/15/16 Last Taken 07/15/16] Omeprazole 40 mg PO DAILY 07/15/16 [History Confirmed 07/22/16 Last Taken 05:42] Trazodone HCl [Desyrel] 50 mg PO QHS 07/15/16 [History Confirmed 07/22/16 Last Taken 07/21/16 20:28 50 MG] Aspirin (Enteric Coated) [Halfprin] 81 mg PO DAILYWM #30 tablet 07/22/16 [Rx Confirmed 07/22/16 Last Taken 07/22/16 08:05] Azithromycin [Zithromax Tri-Eliu] 500 mg PO DAILY #3 tablet 07/24/16 [Rx Last Taken Unknown] BuPROPion (BID formulation) [Wellbutrin-Sr] 150 mg PO DAILY #30 tab.sr.12h 07/24 [Rx Last Taken Unknown] Cefdinir [Omnicef] 300 mg PO BID #10 cap 07/24/16 [Rx Last Taken Unknown] Montelukast Sodium [Singulair] 10 mg PO HS #30 tablet 07/24/16 [Rx Last Taken Unknown] Nicotine [Nicotine Patch] 1 each TD DAILY #30 patch.td24 07/24/16 [Rx Last Taken Unknown] Prednisone [Sterapred Ds] 10 mg PO DIR #21 pack 07/24/16 [Rx Last Taken Unknown] Probiotic Blend [Mee Q] 1 tab PO BIDLS #30 tablet 07/24/16 [Rx Last Taken Unknown] Trazodone HCl [Desyrel] 100 mg PO HS #30 tablet 07/24/16 [Rx Last Taken Unknown] 07/24/16 06:40 07/24/16 06:40 Laboratory Results - last 24 hr 07/23/16 07/23/16 07/24/16 11:06 16:26 06:40 WBC RBC Hgb Hct MCV MCH MCHC RDW Plt Count MPV Neut % (Auto) Lymph % (Auto) Boyle % (Auto) Eos % (Auto) Baso % (Auto) Absolute Neuts (auto) Absolute Lymphs (auto) Seg Neuts % (Manual) Band Neutrophils % Lymphocytes % (Manual) Monocytes % (Manual) Absolute Neutrophils Absolute Lymphocytes Platelet Estimate RBC Morphology Sodium 135 L Potassium 4.0 Chloride 97 L Carbon Dioxide 30 Anion Gap 12 BUN 15 Creatinine 0.60 L Estimated GFR (MDRD) > 60 Glucose 124 H POC Capillary Glucose 121 H 109 H Calculated Osmolality 262 L Calcium 8.3 L 07/24/16 06:40 WBC 11.2 H RBC 4.30 L Hgb 14.2 Hct 40.3 L MCV 94 MCH 32.9 H MCHC 35.1 RDW 12.9 Plt Count 256 MPV 7.7 Neut % (Auto) Cancelled Lymph % (Auto) Cancelled Boyle % (Auto) Cancelled Eos % (Auto) Cancelled Baso % (Auto) Cancelled Absolute Neuts (auto) Cancelled Absolute Lymphs (auto) Cancelled Seg Neuts % (Manual) 82 H Band Neutrophils % 3 Lymphocytes % (Manual) 7 L Monocytes % (Manual) 8 Absolute Neutrophils 9.52 H Absolute Lymphocytes 0.78 Platelet Estimate Norm RBC Morphology Norm Sodium Potassium Chloride Carbon Dioxide Anion Gap BUN Creatinine Estimated GFR (MDRD) Glucose POC Capillary Glucose Calculated Osmolality Calcium O2 Device: Room Air Diet at Discharge: Regular Activity: As Tolerated Discontinue use of:: Alcohol, All Illegal Substances, All Types of Tobacco - DC Summary Notes HPI/Notes: 56 yowm presented to emergency room early on today for evaluation of worsening difficulties breathing cough and phlegm production. Patient reports that about a week ago he has developed chest congestion and cough productive of small amount of foamy sputum. Patient stays that since that time his symptoms have worsened his cough has become productive of thick yellowish greenish phlegm, he has developed progressive worsening dyspnea chest tightness and wheezes. Patient stays that despite using his nebulizers with increased frequency he did not sustain any asymptomatic improvement. Early on today he has found himself gasping for air and decided to be evaluated emergency room. Upon arrival in ED patient was found to be in severe respiratory distress hypoxic tachypneic and tachycardic. His PaO2 was only 55 chest x-ray claudine suspicion for pneumonia. Medical consultation was phoned in for inpatient treatment. Hospital Course Note:: Discharge summary on patient named RAYMUNDO FLORES admitted to [facility] on 07/15/16 by Cristóbal Terry MD. Date of discharge is 07/24/2016. He was treated for COPD exacerbation bronchopneumonia with Rocephin and Zithromax responding well over the ensuing 9 days and ready for discharge today. He was seen in consultation by Dr. Warner for his severe lung disease taking longer than expected period of time to improve from the respiratory infection. Dr. Warner recommended that he follow up in his office within the next 2 weeks. Multiple times during hospitalization he was advised he must quit smoking cigarettes. CC: Dr. Warner No primary care provider identified by patient Total Time: 41 min Code: 13598 (>30min.) - Physical Exam Vital Signs: Last Vital Signs Temp 98.1 F 07/24/16 05:44 Pulse 95 07/24/16 05:44 Resp 18 07/24/16 05:44 BP 158/79 07/24/16 05:44 Pulse Ox 90 L 07/24/16 09:02 Oxygen Pulse Oxygen Saturation 90 O2 Device Room Air Oxygen Flow Rate 1 Fraction of Inspired Oxygen ( 35 FIO2) Constitutional: No apparent distress, Alert Oriented to: Time, Person, Place - HEENT Head: Normal Eye: Normal Oropharynx: Normal ENT EAC: Normal TMJ: Normal Nose: No Symptoms Reported - Respiratory/Cardiovascular Respiratory: Diminished, Wheezes (occas exp) Cardiovascular: Normal (RRR , Normal S1, S2. No murmurs, rubs, or gallops. PMI non-displaced. Carotids: no carotid bruits. No bradycardia or tachycardia. DP pulses 2+ bilaterally.) - GI Auscultation: Normal Palpation: Normal Tenderness: Non tender Wallace's Sign: Negative Rectal Exam: Deferred - Musculoskeletal Back: Normal Extremities: Normal - Integumentary Skin: Normal (Warm dry no rashes) Lymphatics: Normal - Neurologic Memory Impaired: Normal Motor Function: Normal (Motor 5/5 throughout.Normal tone, Pulses 2+ No cyanosis or edema, FROM) Cranial Nerve: Normal (CN II-XII intact sensation, strength 5/5) Cerebellar: Normal. negative: Ataxia, Past-Pointing, Tremor Mood Description: Normal, Appropriate, Calm Thought: Coherent Perception: Normal
[2016-07-24 09:56] VITALS: BP 162/86; PULSE 102
[2016-07-24] MEDS: GUAIFENESIN 600 MG LA TAB PO SCH (09:56)
[2016-07-24] MEDS: DOXAZOSIN MESYLATE 1 MG TAB PO SCH (09:56)
[2016-07-24] MEDS: LISINOPRIL 20 MG TAB PO SCH (09:56)
== END 2016-07-24 11:05 | disposition home or self-care (01) | DRG 189 ==
LOC: ED 14:39 → MPS3 16:46
PROVIDERS: ADMIT Internal Medicine; ATTEND Internal Medicine
PROC: 039B3ZZ Drainage of Right Radial Artery, Percutaneous Approach (ICD-10-PCS; 2016-07-15)
PROC: 5A09357 Assistance with Respiratory Ventilation, Less than 24 Consecutive Hours, Continuous Positive Airway Pressure (ICD-10-PCS; principal; 2016-07-17)
DX: J96.21 Acute and chronic respiratory failure with hypoxia (principal); J18.0 Bronchopneumonia, unspecified organism; E86.0 Dehydration; J44.0 Chronic obstructive pulmonary disease with (acute) lower respiratory infection; J44.1 Chronic obstructive pulmonary disease with (acute) exacerbation; I10 Essential (primary) hypertension; I51.89 Other ill-defined heart diseases; K21.9 Gastro-esophageal reflux disease without esophagitis; F17.210 Nicotine dependence, cigarettes, uncomplicated; Z71.6 Tobacco abuse counseling; R00.0 Tachycardia, unspecified
CPT/HCPCS: 36415; 36600; 71010; 71020; 80048; 80053; 81001; 82272; 82550; 82803; 82962; 83605; 83735; 83880; 84484; 85007; 85025; 85027; 85610; 85730; 87040; 87086; 87205; 93005; 94640; 94660; 96365; 96366; 96372; 96375; 98960; 99284; 99406; G0237; J0456; J0696; J1650; J1940; J1956; J2060; J2930; J3490; J7060; J7070; J7608; J7620